=== PATIENT | male | born 1980 | race Two or more races ===

== ENCOUNTER 2020-11-30 14:24 | Outpatient (REF) | payer OTHER, SELFPAY ==
[2020-11-30 14:53] LABS: COVID-19 Test Negative (Negative); IDNOW Serial# 55D5AD1C
== END 2020-11-30 14:25 | disposition home or self-care (01) ==
LOC: HO.LAB 14:24
PROVIDERS: PCP Internal Medicine; Visit Provider Internal Medicine
DX: Z20.822 Contact with and (suspected) exposure to COVID-19 (principal)
CPT/HCPCS: 36415; 87635; C9803

== ENCOUNTER 2021-07-10 15:18 | Emergency (ER) | payer MEDICAID, SELFPAY ==
[2021-07-10 17:35] VITALS: BP 128/75; PULSE 91; RESP 18; TEMP 37.1; O2SAT 97; BMI 41.3
--- NOTE | 2021-07-10 19:33 | ED_ITS ---
HPI - Skin/Abscess/Foreign Bdy General Chief complaint: Skin/Abscess/Foreign Body Stated complaint: Abscess Time Seen by Provider: 07/10/21 19:33 Source: patient Mode of arrival: ambulatory Limitations: no limitations History of Present Illness HPI narrative: Patient noticed small abscess at the suprapubic area for last 2 3 days had similar abscesses in the past started draining small amount of pus with swelling no fever or chills Related Data Previous Rx's Medication Instructions Recorded cephalexin 500 mg capsule 500 mg PO QID 10 Days #40 cap 07/10/21 doxycycline hyclate 100 mg tablet 100 mg PO BID #20 tab 07/10/21 Allergies Allergy/AdvReac Type Severity Reaction Status Date / Time N.K.D.A. Allergy Unknown none Uncoded 07/10/21 17:35 Review of Systems Review of Systems: Yes all other systems are reviewed and are negative [facility] Past Medical History Medical History Left thyroid nodule Obesity (BMI 30-39.9) Surgical History History of lobectomy of thyroid History of thyroid nodule History of tonsillectomy Family History Family History Father No problems noted. Mother No problems noted. Physical Exam Vital Signs: Vital Signs: Last Vital Signs Temp 98.8 F 07/10/21 17:35 Pulse 91 07/10/21 17:35 Resp 18 07/10/21 17:35 BP 128/75 07/10/21 17:35 Pulse Ox 97 07/10/21 17:35 BMI result Body Mass Index 41.3 Const: General: comfortable and no acute distress : Male genitals images: 1. Small abscess in suprapubic area with slight surrounding induration no cellulitis testicle penis and epididymis normal Procedures Abscess I/D Site: other (Suprapubic) Local Anesthetic: lidocaine 2% Amount of anesthesia used (mL): 5 Technique: incised with blade Amount of fluid expressed (mL): 1 Irrigation: No Packing used?: none Discharge Plan Discharge Clinical Impression: Abscess of skin or subcutaneous tissue Qualifiers: Site of cutaneous abscess: trunk Site of cutaneous abscess of trunk: groin Qualified Code(s): L02.214 - Cutaneous abscess of groin Patient Disposition: Home, Self-Care Instructions: Abscess Incision and Drainage (DC) Additional Instructions: Local care advised Warm compresses take antibiotic as prescribed Prescriptions: New cephalexin 500 mg capsule 500 mg PO QID 10 Days Qty: 40 RF: 0 doxycycline hyclate 100 mg tablet 100 mg PO BID Qty: 20 RF: 0
[2021-07-10] MEDS: cephALEXin 500 MG CAPSULE PO (20:07)
[2021-07-10] MEDS: Lidocaine HCl 2 % MPF 5 ML VIAL INFILTRATI (20:07)
== END 2021-07-10 20:15 | disposition home or self-care (01) ==
PROVIDERS: Emergency Provider Internal Medicine; PCP Internal Medicine
DX: L02.214 Cutaneous abscess of groin (principal)
CPT/HCPCS: 10060; 99284

== ENCOUNTER 2022-01-13 08:18 | Outpatient (REF) | payer OTHER, SELFPAY ==
[2022-01-13 08:42] LABS: Hematocrit 46.7 % (42.0-52.0); Hemoglobin 14.4 g/dl (14.0-18.0); Mean Corpuscular HGB Conc 30.8 g/dl (31.0-36.0); Mean Corpuscular Hemoglobin 27.1 pg (27.0-33.0); Mean Corpuscular Volume 87.8 fL (80.0-98.0); Mean Platelet Volume 9.6 fL (9.4-12.4); Platelet Count 248 X10*3/uL (160-400); Red Blood Count 5.32 X10*6/uL (4.60-5.80); Red Cell Distribution Width 14.1 % (11.0-16.0); White Blood Count 6.7 X10*3/uL (4.8-10.8)
[2022-01-13 08:55] LABS: Estimated Average Glucose 123 mg/dL; Hemoglobin A1c % 5.9 %
[2022-01-13 09:24] LABS: Alanine Aminotransferase 17 U/L (0-40); Alkaline Phosphatase 263 U/L (39-117); Anion Gap 13 (12-20); Aspartate Amino Transferase 21 U/L (5-37); Bilirubin Total 0.4 mg/dL (0.0-1.0); Blood Urea Nitrogen 18 mg/dL (9-16); Carbon Dioxide 28 mmol/L (22-29); Chloride 103 mmol/L (96-108); Cholesterol 138 mg/dL; Estimated Glomerular Filt Rate > 60; Glucose Fasting 122 mg/dL (60-99); HDL Cholesterol 39 mg/dL; LDL Cholesterol Calculated 89 mg/dl; Sodium 139 mmol/L (135-145); Triglycerides 54 mg/dL
[2022-01-13 09:32] LABS: Free T4 (Free Thyroxine) 1.22 ng/dL (0.71-1.85); TSH reflex Free T4 1.92 uIU/mL (0.32-4.0)
== END 2022-01-13 08:19 | disposition home or self-care (01) ==
LOC: HO.LAB 08:18
PROVIDERS: PCP Internal Medicine; Visit Provider Physician Assistant
DX: E66.01 Morbid (severe) obesity due to excess calories (principal); Z68.41 Body mass index [BMI] 40.0-44.9, adult; Z90.09 Acquired absence of other part of head and neck
CPT/HCPCS: 36415; 80053; 80061; 83036; 84439; 84443; 85027

== ENCOUNTER 2022-03-09 08:46 | Outpatient (REF) | payer OTHER, SELFPAY ==
--- NOTE | ~2022-03-09 | US_ITS ---
EXAMINATION: US ABDOMEN COMPLETE CLINICAL INFORMATION: Elevated alkaline phosphatase level. Rule out gallstone. COMPARISON: Ultrasound kidneys and bladder 09/28/2019. Renal ultrasound 06/18/2019. CT abdomen and pelvis 12/15/2018. TECHNIQUE: Real-time imaging of the abdominal viscera. Technically difficult study secondary to body habitus. FINDINGS: PANCREAS: Normal. ABDOMINAL AORTA: The proximal and mid abdominal aorta are not well visualized. The distal abdominal aorta is normal in caliber. INFERIOR VENA CAVA: Visualized portions are normal. LIVER: Normal. The liver is normal in size. The liver contour is normal. Parenchymal echogenicity is normal. No focal hepatic lesion. There is no intrahepatic biliary duct dilatation seen. GALLBLADDER: Normal. The gallbladder is physiologically distended without evidence of stones, sludge, polyps, wall thickening or pericholecystic fluid. COMMON BILE DUCT: Normal in caliber measuring 0.5 cm in diameter. RIGHT KIDNEY: Normal. No hydronephrosis. No renal calculi or focal parenchymal lesions. The kidney measures 12.3 cm in maximum dimension. LEFT KIDNEY: Normal. No hydronephrosis. No renal calculi or focal parenchymal lesions. The kidney measures 12.2 cm in maximum dimension. SPLEEN: Normal. The spleen measures 11.3 cm in maximum dimension. FREE FLUID: None. US/US abdomen complete IMPRESSION: Limited visualization of the proximal and mid abdominal aorta. Otherwise unremarkable exam.
== END 2022-03-09 08:47 | disposition home or self-care (01) ==
LOC: HO.US 08:46
PROVIDERS: Visit Provider Physician Assistant
DX: R74.8 Abnormal levels of other serum enzymes (principal)
CPT/HCPCS: 76700

== ENCOUNTER 2022-06-08 09:31 | Outpatient (REF) | payer OTHER, SELFPAY ==
--- NOTE | ~2022-06-08 | XR_ITS ---
EXAMINATION: XR CERVICAL SPINE CLINICAL INFORMATION: Pain COMPARISON: None TECHNIQUE: 3 views of the cervical spine were obtained. FINDINGS: Bone alignment is normal. No fracture or dislocation. Mild degenerative spondylosis at C6-C7. Normal disc spaces. Normal prevertebral soft tissues. Surgical clips in the left anterior lower neck. XR/XR cervical spine 3V IMPRESSION: Mild degenerative spondylosis at C6-C7.
--- NOTE | ~2022-06-08 | XR_ITS ---
EXAMINATION: XR SHOULDER, LEFT CLINICAL INFORMATION: Pain COMPARISON: None TECHNIQUE: AP external rotation, Grashey, scapular Y, and axillary views of the left shoulder. FINDINGS: The bones and soft tissues are normal. No fracture. Glenohumeral and acromioclavicular alignment is anatomic with normal joint space. No abnormal soft tissue calcifications. XR/XR shoulder LT min 2V IMPRESSION: Normal left shoulder.
[2022-06-08 10:29] LABS: Appearance Urine Clear; Color Urine Yellow; Glucose Urine UA Negative (Negative); Leukocyte Esterase Urine Negative (Negative); Nitrite Urine Negative (Negative); Specific Gravity - Urine >= 1.030 (1.005-1.025); Urine Blood Negative (Negative); Urine Ketones Trace mg/dL (Negative); Urine Protein Negative (Neg-Trace)
[2022-06-08 11:16] LABS: Erythrocyte Sedimentation Rate 7 MM/HR (0-15)
[2022-06-08 11:26] LABS: Prostate Specific Antigen 2.49 ng/mL (<0.05-4.0)
[2022-06-08 12:06] LABS: Vitamin B12 < 146 pg/mL (200-900)
== END 2022-06-08 09:32 | disposition home or self-care (01) ==
LOC: HO.XRAY 09:31
PROVIDERS: PCP Internal Medicine; Visit Provider Internal Medicine
DX: Z12.5 Encounter for screening for malignant neoplasm of prostate (principal); R20.2 Paresthesia of skin; R35.0 Frequency of micturition; E83.42 Hypomagnesemia
CPT/HCPCS: 36415; 72040; 73030; 81003; 82607; 82746; 83735; 84153; 85652; 86140

== ENCOUNTER → 2022-09-23 14:59 | Outpatient (BNVA) | payer OTHER, SELFPAY | PROVIDERS: PCP Internal Medicine; Visit Provider Urology | DX: S30.852A Superficial foreign body of penis, initial encounter (principal) | CPT/HCPCS: 51798; 99202 ==

== ENCOUNTER 2022-10-14 10:56 | Outpatient (REF) | payer OTHER, SELFPAY ==
[2022-10-14 12:44] LABS: Estimated Average Glucose 137 mg/dL; Hemoglobin A1c % 6.4 %
[2022-10-14 13:17] LABS: Folate 9.9 ng/mL (> or = 4.0); TSH reflex Free T4 2.25 uIU/mL (0.32-4.0); Vitamin B12 < 148 pg/mL (200-900); Vitamin D 25-OH Total 9.1 ng/mL (>30)
== END 2022-10-14 10:57 | disposition home or self-care (01) ==
LOC: HO.LAB 10:56
PROVIDERS: PCP Internal Medicine; Visit Provider Nurse Practitioner Family
DX: R35.0 Frequency of micturition (principal); R73.01 Impaired fasting glucose; Z90.09 Acquired absence of other part of head and neck
CPT/HCPCS: 36415; 82306; 82607; 82746; 83036; 84443; 87086

== ENCOUNTER 2022-11-24 08:23 | Outpatient (REF) | payer OTHER, SELFPAY ==
[2022-11-24 08:28] VITALS: BMI 41.9
[2022-11-24 08:29] VITALS: BP 141/84; PULSE 88; RESP 16; TEMP 36.8; O2SAT 100
[2022-11-24 08:47] VITALS: BP 132/78; PULSE 87; RESP 16; O2SAT 98
--- NOTE | 2022-11-24 09:05 | W.PM.OPN ---
Operative Note Operative Note Date of Service: 11/24/22 Narrative: PreOperative Diagnosis: Foreign body dorsal area penile shaft Post Operative Diagnosis: Foreign body dorsal penile shaft Procedure: Removal of foreign body from dorsal penile shaft Surgeon: Dr Alfred Maki Anesthesia: Local Indications for procedure: Dorsal penile shaft foreign body had been placed during prior incarceration. Patient requesting removal. Procedure: After informed consent was verified the patient was brought to the operating room and placed in a supine position. Anesthesia was administered per protocol. The patient was prepped and draped in a sterile fashion. Safety pause time-out was performed. Antibiotics being given. The foreign body was manipulated between the left hand. A small incision was made with a blade onto the foreign body. Foreign body was dissected carefully from its surrounding attachments and removed. It was approximately 1 centimeter sq. Once removed to deep sutures were placed. Three sutures were then used to close the incision with interrupted 4-0 chromic. Procedure well tolerated Pathology: Foreign body Drains:
== END 2022-11-24 08:24 | disposition home or self-care (01) ==
LOC: HO.MS 08:23
PROVIDERS: PCP Internal Medicine; Visit Provider Urology
PROC: (CPT 10120; principal; 2022-11-24 08:00)
DX: S30.852A Superficial foreign body of penis, initial encounter (principal); X58.XXXA Exposure to other specified factors, initial encounter; Y93.9 Activity, unspecified; Y92.9 Unspecified place or not applicable
CPT/HCPCS: 10120

== ENCOUNTER 2022-12-19 08:51 | Outpatient (REF) | payer OTHER, SELFPAY ==
--- NOTE | ~2022-12-19 | XR_ITS ---
EXAMINATION: XR FOOT, RIGHT XR FOOT, LEFT CLINICAL INDICATION: Pain. TECHNIQUE: 3 views each foot. FINDINGS: Right foot: The joint spaces are maintained. No visible fracture or dislocation. No periosteal thickening. The small retrocalcaneal enthesophyte is seen. The ankle mortise and subtalar joints are normal. Left foot: There is no visible fracture, dislocation or bony erosive changes. The joint space is maintained normal. The soft tissues are normal. The ankle mortise and subtalar joints are normal. A small retrocalcaneal and calcaneal heel enthesophyte. XR/XR foot RT 2V IMPRESSION: Small retrocalcaneal enthesophytes bilaterally with a small calcaneal heel spur left foot enthesophyte. No acute fracture, dislocation or bony erosive changes.
--- NOTE | ~2022-12-19 | XR_ITS ---
EXAMINATION: XR FOOT, RIGHT XR FOOT, LEFT CLINICAL INDICATION: Pain. TECHNIQUE: 3 views each foot. FINDINGS: Right foot: The joint spaces are maintained. No visible fracture or dislocation. No periosteal thickening. The small retrocalcaneal enthesophyte is seen. The ankle mortise and subtalar joints are normal. Left foot: There is no visible fracture, dislocation or bony erosive changes. The joint space is maintained normal. The soft tissues are normal. The ankle mortise and subtalar joints are normal. A small retrocalcaneal and calcaneal heel enthesophyte. XR/XR foot LT 2V IMPRESSION: Small retrocalcaneal enthesophytes bilaterally with a small calcaneal heel spur left foot enthesophyte. No acute fracture, dislocation or bony erosive changes.
== END 2022-12-19 08:52 | disposition home or self-care (01) ==
LOC: HO.XRAY 08:51
PROVIDERS: PCP Internal Medicine; Visit Provider Nurse Practitioner Family
DX: M79.671 Pain in right foot (principal); M79.672 Pain in left foot
CPT/HCPCS: 73620

== ENCOUNTER 2023-04-28 13:04 | Outpatient (AMB) | payer OTHER, SELFPAY ==
--- NOTE | 2023-04-28 13:04 | MHC.PC.OV ---
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 Accompanied by: Self / Same As Patient Allergies No Known Allergies Allergy (Verified 04/28/23 13:40) Medication List - Last Reconciled 04/28/23 by Anson Bruce MD cholecalciferol (vitamin D3) 50 mcg PO DAILY cyanocobalamin (vitamin B-12) 1,000 mcg PO DAILY nabumetone 500 mg PO BID terazosin 10 mg PO BEDTIME 30 days Tobacco use date assessed: 04/28/23 Dental Screening Dental Screen Date: 04/28/23 Did you have a dental visit in the last 12 months?: Yes Did you have a dental problem in the last 6 months where you did not have access to dental care?: No Was dental information given to patient?: Patient has dentist HPI PE HPI Details Patient comes in today for his annual physical examination States that he feels okay He denies any headaches or dizziness Denies any chest pains, no SOB No nausea/vomiting, no abdominal pain No change in bowel habits noted Denies any acute urinary symptoms PFSH Medical History (Updated 04/30/23 @ 18:34 by Anson Bruce MD) Vitamin D deficiency Vitamin B12 deficiency Morbid obesity with BMI of 40.0-44.9, adult Obesity (BMI 30-39.9) Left thyroid nodule Surgical History History of thyroid nodule History of lobectomy of thyroid History of tonsillectomy Family History Father No problems noted. Mother No problems noted. Social History Housing: House Alcohol intake: current Alcohol intake frequency: holidays/special occasions only Patient Tobacco Use Status: Former Tobacco user Tobacco use type: Cigarette Years Smoked: 30 e-Cigarette/Vaping Use: Never Used Substance Use Type: Marijuana service: No Current occupational status: unemployed Cognitive needs: No Hearing needs: No Vision needs: No Questionnaire PHQ-9 Over the last 2 weeks, how often have you been bothered by any of the following problems? 1. Little interest or pleasure in doing things: not at all 2. Feeling down, depressed, or hopeless: not at all 3. Trouble falling or staying asleep, or sleeping too much: not at all 4. Feeling tired or having little energy: not at all 5. Poor appetite or overeating: not at all 6. Feeling bad about yourself - or that you are a failure or have let yourself or your family down: not at all 7. Trouble concentrating on things, such as reading the newspaper or watching television: not at all 8. Moving or speaking so slowly that other people could have noticed. Or the opposite - being so fidgety or restless that you have been moving around a lot more than usual: not at all 9. Thoughts that you would be better off or of hurting yourself in some way: not at all Total score: 0 Depression Screening Interpretation: Negative [id number] - PHQ-9 Billing: Yes Source: Developed by Drs. Joey Arriola, Aisha Eller, Jim Tolentino and colleagues, with an educational liliana from [employer] Thrive Questionnaire Date Thrive assessed: 04/28/23 I am a: Patient What is your living situation today?: I have a steady place to live Within the past 12 months, did the food you bought not last and you didn't have the money to get more?: Never true Within the past 12 months, did you worry whether your food would run out before you got money to buy more?: Never true Do you have trouble paying for medicines?: No Do you have trouble getting transportation to medical appointments?: No Do you have trouble paying your heating and electricity bill?: No Do you have trouble taking care of your child, family member or friend?: No Do you have trouble with day-to-day activities such as bathing, preparing meals, shopping, managing finances, etc.?: No Are you currently unemployed and looking for a job?: No Are you interested in more education?: No Please select the resources that you would like help with: None Currently or been in a relationship where the following occur: no concerns reported AUDIT C Alcohol Use Questionnaire (AUDIT-C) 1. How often do you have a drink containing alcohol?: Monthly or less 2. How many drinks containing alcohol do you have on a typical day when you are drinking?: 1 or 2 3. How often do you have six or more drinks on one occasion?: Less than monthly Total Score: 2 Score Reviewed/Action Taken: Yes WESLEY-7 AMB Questionnaire WESLEY-7 Date WESLEY - 7 assessed: 04/28/23 Feeling nervous, anxious, or on edge: 0 = Not at all Not being able to stop or control worryin = Not at all Worrying too much about different things: 0 = Not at all Trouble relaxin = Not at all Being so restless that it is hard to sit still: 0 = Not at all Becoming easily annoyed or irritable: 0 = Not at all Feeling afraid as if something awful might happen: 0 = Not at all Total WESLEY-7 score (0-4 normal; 5-9 mild; 10-14 moderate; 15-21 severe): 0 Source: Developed by Drs. Joey Arriola, Aisha Eller, Jim Tolentino and colleagues, with an educational liliana from [employer] Review of Systems Const Denies chills, Denies fatigue, Denies fever(s), Denies headache(s), Denies malaise and Denies weakness Eyes Denies blurry vision, Denies change in vision, Denies irritation and Denies itchy eyes ENT Denies dysphagia, Denies dizziness, Denies otalgia, Denies headache(s), Denies nasal congestion, Denies neck pain, Denies odynophagia and Denies sore throat Card Denies chest pain, Denies rapid heart rate, Denies irregular heart rhythm, Denies palpitations and Denies dyspnea Resp Denies chest congestion, Denies cough, Denies dyspnea and Denies wheezing GI Denies abdominal pain, Denies bloating, Denies constipation, Denies dysphagia, Denies heartburn, Denies diarrhea, Denies nausea, Denies odynophagia and Denies vomiting Denies hematuria, Denies difficulty urinating, Denies dysuria, Denies urinary frequency and Denies urinary urgency Musc Denies back pain, Denies arthralgias, Denies joint swelling, Denies muscle weakness and Denies neck pain Skin/Breast Denies change in pigmentation, Denies lesions, Denies rash and Denies unusual bruising Neuro Denies dizziness, Denies headache(s), Denies paresthesias and Denies weakness Endo Denies fatigue and Denies palpitations Aller/Immun Denies itchy eyes and Denies wheezing Physical exam (Primary Care) Vital Signs: Last Vital Signs Pulse 87 04/28/23 13:05 BP 130/70 04/28/23 13:05 Pulse Ox 95 04/28/23 13:05 Oxygen Delivery Method Room Air 04/28/23 13:05 BMI result Body Mass Index 43.2 Tobacco/Smoking Status: Tobacco use Status Tobacco use date assessed 04/28/23 04/28/23 13:13 Patient Tobacco Use Status Former Tobacco user 04/28/23 13:13 Tobacco use type Cigarette 04/28/23 13:13 e-Cigarette/Vaping Use Never Used 04/28/23 13:13 PHQ-9: PHQ-9 Score PHQ-9: Total score 0 04/28/23 13:44 Depression Screening Interpretation: Negative Thrive Assessment: Date of Thrive Assessment Date Thrive assessed 04/28/23 04/28/23 13:13 Currently or been in a relationship where the following occur: no concerns reported Const General: no acute distress, alert and awake Orientation/consciousness: patient oriented x3 HENMT Head: Yes normocephalic and Yes atraumatic Ears: external ears normal, TM's normal bilaterally and EAC's normal General nose exam: No nasal discharge present Face and sinus: Yes normal facial exam and Yes sinuses nontender Teeth and gingiva: dentition normal Throat: Yes posterior oropharynx normal and Yes tonsils normal (no TP congestion) Eyes Eyelids: Yes eyelids normal Conjunctivae: conjunctivae normal Pupils: Equal, round and reactive pupils present EOM: EOMs intact bilaterally Neck Neck: Yes no lymphadenopathy and Yes supple Thyroid: Thyroid normal Resp Auscultation: clear to auscultation bilaterally, no rales and no wheezes Cardio Rate: regular rate Rhythm: regular rhythm Heart sounds: no murmurs GI Palpation (GI): Soft to palpation, nontender and No hepatosplenomegaly present Auscultation: normal bowel sounds General: Yes no CVA tenderness Back/Spine/Pelvis Back: no CVA tenderness Thoracic/Lumbar Spine: thoracic and lumbar spine normal to inspection Skin Lesions: no lesions Rashes: no rashes Neuro General: patient oriented x3, moves all extremities, no focal motor deficits and CN's II-XI intact bilaterally Cranial nerves: Yes Equal, round and reactive pupils present Cognition (Neuro): normal cognition Gait exam (Neuro): Normal gait present Extrem General: Yes no clubbing, cyanosis or edema Assessment and Plan Assessment & Plan (1) Annual physical exam: Code(s): Z00.00 - Encounter for general adult medical examination without abnormal findings Plan: Check labs ELIZABETH (2) Impaired fasting glucose: Code(s): R73.01 - Impaired fasting glucose Plan: Reinforced low calorie/low carb diet; exercise as tolerated His FBS has been elevated in the past and his HgbA1c was at 6.4% when checked back in October 2022 - advised that this classifies him at least as a borderline diabetic and if his HgbA1c goes up any further, he would then be in diabetic range Will recheck his FBS and HgbA1c ELIZABETH for follow up (3) Vitamin B12 deficiency: Code(s): E53.8 - Deficiency of other specified B group vitamins Plan: Patient has had a very low Vitamin B12 level when checked a few months ago in October 2022 - advised that this may be a large reason for his previous symptoms of paresthesia Will send him for some additional labs for further work ups as we need to determine if his B12 deficiency is just dietary or may be due to intrinsic factor deficiency (4) Vitamin D deficiency: Code(s): E55.9 - Vitamin D deficiency, unspecified Plan: Is advised to start taking OTC Vitamin D3 2000 units QD Will recheck his Vitamin D level for follow up (5) Morbid obesity with BMI of 40.0-44.9, adult: Code(s): E66.01 - Morbid (severe) obesity due to excess calories; Z68.41 - Body mass index [BMI] 40.0-44.9, adult Plan: Reinforced diet/exercise as tolerated/lose weight (6) Colon cancer screening: Code(s): Z12.11 - Encounter for screening for malignant neoplasm of colon Plan: Will refer him for screening colonoscopy Plan Follow up in 4 months Orders: Orders TSH reflex Free T4 04/28/23 E78.00 - Pure hypercholesterolemia, unspecified, R73.01 - Impaired fasting glucose, Z00.00 - Encounter for general adult medical examination without abnormal findings UA CC w/rflx Micro + Cult 04/28/23 R30.0 - Dysuria, R73.01 - Impaired fasting glucose, Z00.00 - Encounter for general adult medical examination without abnormal findings Hemoglobin A1c 04/28/23 R73.01 - Impaired fasting glucose Methylmalonic Acid Today E53.8 - Deficiency of other specified B group vitamins Reticulocyte Count Today D51.0 - Vitamin B12 deficiency anemia due to intrinsic factor deficiency, E53.8 - Deficiency of other specified B group vitamins Prostate Specific Antigen Scr Today Z00.00 - Encounter for general adult medical examination without abnormal findings Complete Blood Count Auto Diff 04/28/23 R73.01 - Impaired fasting glucose, Z00.00 - Encounter for general adult medical examination without abnormal findings Comprehensive [place]. Panel Fast 04/28/23 R73.01 - Impaired fasting glucose, Z00.00 - Encounter for general adult medical examination without abnormal findings Lipid Panel 04/28/23 E78.00 - Pure hypercholesterolemia, unspecified, R73.01 - Impaired fasting glucose, Z00.00 - Encounter for general adult medical examination without abnormal findings Vitamin B12 and Folate 04/28/23 E53.8 - Deficiency of other specified B group vitamins, R73.01 - Impaired fasting glucose, Z00.00 - Encounter for general adult medical examination without abnormal findings Vitamin D 25-OH Total 04/28/23 E55.9 - Vitamin D deficiency, unspecified, R73.01 - Impaired fasting glucose, Z00.00 - Encounter for general adult medical examination without abnormal findings IRON PROFILE Today D50.9 - Iron deficiency anemia, unspecified, D51.0 - Vitamin B12 deficiency anemia due to intrinsic factor deficiency, E53.8 - Deficiency of other specified B group vitamins Referrals Gastroenterology Referral R73.01 - Impaired fasting glucose, Z00.00 - Encounter for general adult medical examination without abnormal findings, Z12.11 - Encounter for screening for malignant neoplasm of colon Coding Level of Care Code Est Pt Prev Care 40-64y(30410) Diagnoses Annual physical exam Z00.00 Impaired fasting glucose R73.01 Vitamin B12 deficiency E53.8 Vitamin D deficiency E55.9 Morbid obesity with BMI of 40.0-44.9, adult E66.01; Z68.41 Colon cancer screening Z12.11
[2023-04-28 13:05] VITALS: BP 130/70; PULSE 87; O2SAT 95; BMI 43.2
== END 2023-04-28 13:50 | disposition home or self-care (01) ==
PROVIDERS: PCP Internal Medicine; Visit Provider Internal Medicine
DX: Z00.00 Encounter for general adult medical examination without abnormal findings (principal); E55.9 Vitamin D deficiency, unspecified; E66.01 Morbid (severe) obesity due to excess calories; Z68.41 Body mass index [BMI] 40.0-44.9, adult; Z90.09 Acquired absence of other part of head and neck
CPT/HCPCS: 99396

== ENCOUNTER 2023-05-10 08:43 | Outpatient (REF) | payer OTHER, SELFPAY ==
[2023-05-10 09:26] LABS: MANUAL DIFF FLAG NO
[2023-05-10 09:37] LABS: Basophils Percent Auto 0.3 % (0-2); Eosinophils Absolute Auto 0.1 X10*3/uL (0.0-0.4); Eosinophils Percent Auto 1.2 % (0-4); Hematocrit 46.5 % (42.0-52.0); Hemoglobin 14.8 g/dl (14.0-18.0); Imm Gran Abs Auto 0.02 X10*3/uL (0.00-0.03); Imm Gran Pct Auto 0.3 % (0.0-0.4); Immature Retic Fraction 9.9 % (2.3-13.4); Lymphocytes Absolute Auto 1.8 X10*3/uL (1.2-4.9); Mean Corpuscular HGB Conc 31.8 g/dl (31.0-36.0); Mean Corpuscular Hemoglobin 27.1 pg (27.0-33.0); Mean Platelet Volume 9.6 fL (9.4-12.4); Monocytes Absolute Auto 0.5 X10*3/uL (0.1-1.2); Monocytes Percent Auto 7.3 % (2-11); Neutrophils Absolute Auto 4.5 x10*3/uL (2.0-8.3); Neutrophils Percent Auto 64.9 % (45-73); Platelet Count 283 X10*3/uL (160-400); Red Blood Count 5.47 X10*6/uL (4.60-5.80); Retic HGB Equivalent 33.5 pg (30.0-35.0); Reticulocyte Percent 1.3 % (0.5-1.8); Reticulocytes Absolute 0.072 X10*6/uL (0.026-0.095); White Blood Count 6.9 X10*3/uL (4.8-10.8)
[2023-05-10 10:26] LABS: TSH reflex Free T4 1.77 uIU/mL (0.32-4.0); Vitamin D 25-OH Total 23.5 ng/mL (>30)
[2023-05-10 10:32] LABS: Folate 16.5 ng/mL (> or = 4.0); Prostate Specific Antigen Scr 4.15 ng/mL (<0.05-4.0); Vitamin B12 215 pg/mL (200-900)
[2023-05-10 10:59] LABS: Estimated Average Glucose 134 mg/dL; Hemoglobin A1C 150.9009 umol/L; Hemoglobin A1c % 6.3 % (<6.0)
[2023-05-10 11:40] LABS: Alanine Aminotransferase 21 U/L (0-40); Albumin Level 4.2 g/dL (3.5-5.0); Alkaline Phosphatase 85 U/L (39-117); Anion Gap 12 (12-20); Aspartate Amino Transferase 24 U/L (5-37); Bilirubin Total 0.7 mg/dL (0.0-1.0); Blood Urea Nitrogen 15 mg/dL (9-16); Calcium 9.3 mg/dL (8.4-10.2); Carbon Dioxide 29 mmol/L (22-29); Chloride 103 mmol/L (96-108); Cholesterol 200 mg/dL (<200); Estimated Glomerular Filt Rate > 60; Glucose Fasting 129 mg/dL (60-99); HDL Cholesterol 43 mg/dL (>40); Iron 97 mcg/dL (45-160); LDL Cholesterol Calculated 136 mg/dL (<100); Percent Iron Saturation 29 % (15-50); Potassium 4.6 mmol/L (3.3-5.1); Sodium 139 mmol/L (135-145); Total Iron Binding Capacity 339 mcg/dL (228-428); Total Protein 7.5 g/dL (6.5-8.0); Triglycerides 107 mg/dL (<150); Unsaturated Iron Binding 242 ug/dL
[2023-05-10 11:41] LABS: Appearance Urine Clear; Color Urine Yellow; Glucose Urine UA Negative (Negative); Leukocyte Esterase Urine Trace (Negative); Nitrite Urine Negative (Negative); Specific Gravity - Urine 1.025 (1.005-1.025); UMIC TRIGGER UACC YES; Urine Blood Negative (Negative); Urine Ketones Negative (Negative); Urine Protein Negative (Neg-Trace)
[2023-05-10 11:45] LABS: Bacteria Urine None Seen (None Seen); RBC Urine 0-2 /HPF (0-2); Squamous Epithelial Cell Urine 0-2 /HPF (0-2); WBC Urine 0-5 /HPF (0-5)
[2023-05-14 06:39] LABS: Methylmalonic Acid 550 nmol/L (87-318)
== END 2023-05-10 08:44 | disposition home or self-care (01) ==
LOC: HO.LAB 08:43
PROVIDERS: PCP Internal Medicine; Visit Provider Internal Medicine
DX: Z00.00 Encounter for general adult medical examination without abnormal findings (principal); R73.01 Impaired fasting glucose; D50.9 Iron deficiency anemia, unspecified; D51.0 Vitamin B12 deficiency anemia due to intrinsic factor deficiency; E78.00 Pure hypercholesterolemia, unspecified; E55.9 Vitamin D deficiency, unspecified
CPT/HCPCS: 36415; 80053; 80061; 81001; 82306; 82607; 82746; 83036; 83540; 83921; 84153; 84443; 85025; 85045

== ENCOUNTER 2023-07-06 11:44 | Outpatient (AMB) | payer OTHER, SELFPAY ==
--- NOTE | 2023-07-06 12:04 | MHC.OFFVIS ---
Intake Vital Signs 07/06/23 12:05 Height 5 ft 9 in Weight 282 lb BMI 41.6 BP 139/74 Blood Pressure Location Lt brachial Position Sitting Pulse 79 Intake Visit Reasons: Colonoscopy Screening Intake Note: Patient new consult for 1st pre colonoscopy screening. Patient denies any GI issues. 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 No GI complaint Normal bowels Good appetite No cardiac or respiratory No N/V/D/ abdominal pain, fever or chills PFSH Medical History Vitamin D deficiency Vitamin B12 deficiency Morbid obesity with BMI of 40.0-44.9, adult Obesity (BMI 30-39.9) Left thyroid nodule Surgical History History of thyroid nodule History of lobectomy of thyroid History of tonsillectomy Family History Father No problems noted. Mother No problems noted. Social History Housing: House Alcohol intake: current Alcohol intake frequency: holidays/special occasions only Patient Tobacco Use Status: Former Tobacco user Tobacco use type: Cigarette Years Smoked: 30 e-Cigarette/Vaping Use: Never Used Substance Use Type: Marijuana service: No Current occupational status: unemployed Cognitive needs: No Hearing needs: No Vision needs: No Review of Systems Const All systems reviewed & are unremarkable except as noted in HPI and below Card Denies chest pain and Denies dyspnea Resp Denies dyspnea Physical Exam Vital Signs: Last Vital Signs Pulse 79 07/06/23 12:05 BP 139/74 07/06/23 12:05 BMI result Body Mass Index 41.6 Const General: cooperative, healthy appearing, comfortable, no acute distress and well developed Eyes Sclerae: sclerae normal Resp Effort & Inspection: normal respiratory effort and able to speak in complete sentences Auscultation: clear to auscultation bilaterally, no rales, no rhonchi and no wheezes Cardio Rate: regular rate Rhythm: regular rhythm Heart sounds: S1 normal heart sound present and S2 normal heart sound present GI Palpation (GI): Soft to palpation and nontender Auscultation: normal bowel sounds Extrem General: Yes full ROM Psych Appearance: grossly normal and well kempt Mental Status: mental status grossly normal Speech and movement: Normal speech and movement present and Clear speech present Affect: normal affect Attitude: cooperative Thought process: Normal thought process present Thought content: Normal thought content present Insight: Good insight present (Psych) Judgement: Good judgement present (Psych) Assessment & Plan Assessment & Plan (1) Colon cancer screening: Comment: Discussed procedure, rare risks, need for escort Code(s): Z12.11 - Encounter for screening for malignant neoplasm of colon Plan: Index screening colonoscopy Plan Index screening colonoscopy MiraLax Gatorade prep Orders: Orders Colonoscopy - GI Use Only Today Z12.11 - Encounter for screening for malignant neoplasm of colon Medications: New bisacodyl (Dulcolax (bisacodyl)) Day before procedure, prep day Take 4 tablets by mouth upon awakening followed by large glass of water 20 mg (4 x 5 mg) PO ONCE 4 tabs 0RF colonoscopy prep 1 day Z12.11 - Encounter for screening for malignant neoplasm of colon polyethylene glycol 3350 (Miralax) Take as directed by mouth the day before your procedure. 238 grams PO ONCE PRN 238 grams 0RF laxative effect 1 day Patient Instructions: Index screening colonoscopy MiraLax Gatorade prep, reviewed, literature Opportunity for questions and answered to his satisfaction Encouraged to call questions or concerns Coding Level of Care Code New Pt Level 3 (68961) Diagnoses Colon cancer screening Z12.11
[2023-07-06 12:05] VITALS: BP 139/74; PULSE 79; BMI 41.6
== END 2023-07-06 13:05 | disposition home or self-care (01) ==
PROVIDERS: PCP Internal Medicine; Visit Provider Physician Assistant
DX: Z12.11 Encounter for screening for malignant neoplasm of colon (principal); Z01.818 Encounter for other preprocedural examination
CPT/HCPCS: 99203

== ENCOUNTER → 2023-07-06 11:44 | Outpatient (BNVA) | payer OTHER, SELFPAY | PROVIDERS: PCP Internal Medicine; Visit Provider Physician Assistant | DX: Z12.11 Encounter for screening for malignant neoplasm of colon (principal) | CPT/HCPCS: 99202 ==

== ENCOUNTER 2023-08-30 13:19 | Outpatient (AMB) | payer OTHER, SELFPAY ==
[2023-08-30 13:23] VITALS: BP 110/80; PULSE 73; O2SAT 97; BMI 43.7
--- NOTE | 2023-08-30 13:23 | MHC.PC.OV ---
Vital Signs 08/30/23 13:23 Height 5 ft 9 in Weight 296 lb 4 oz BMI 43.7 BP 110/80 Blood Pressure Location Lt brachial Position Sitting Pulse 73 Pulse Source Pulse Oximeter Pulse Oximetry (%) 97 Oxygen Delivery Method Room Air Intake Visit Reasons: [facility] [employer] Librarian Required: No Accompanied by: Self / Same As Patient Allergies No Known Allergies Allergy (Verified 08/30/23 14:23) Medication List - Last Reconciled 08/30/23 by Anson Bruce MD bisacodyl (Dulcolax (bisacodyl)) 20 mg (4 x 5 mg) PO ONCE 1 day cholecalciferol (vitamin D3) 50 mcg PO DAILY cyanocobalamin (vitamin B-12) 1,000 mcg PO DAILY nabumetone 500 mg PO BID polyethylene glycol 3350 (Miralax) 238 grams PO ONCE PRN 1 day terazosin 10 mg PO BEDTIME 30 days Tobacco use date assessed: 08/30/23 Dental Screening Dental Screen Date: 08/30/23 Did you have a dental visit in the last 12 months?: Yes Did you have a dental problem in the last 6 months where you did not have access to dental care?: No Was dental information given to patient?: Patient has dentist HPI IFG HPI Details Patient comes in today for his follow-up visit States that he feels okay He denies any headaches or dizziness Denies any chest pain, no shortness of breath No nausea /vomiting, no abdominal pain No change in bowel habits noted Would like to know how he did on his labs done back in May 2023 He is scheduled for his screening colonoscopy on 11/08/2023 Patient adds that his wants him to get a sleep study done as she has noticed him stop breathing frequently when he is sleeping States that his also mentioned that he has been snoring very heavily when he is sleeping over the past year and that this is much worse than before [facility] Medical History (Updated 09/04/23 @ 11:01 by Anson Bruce MD) Elevated PSA Pure hypercholesterolemia Vitamin D deficiency Vitamin B12 deficiency Morbid obesity with BMI of 40.0-44.9, adult Obesity (BMI 30-39.9) Left thyroid nodule Surgical History History of thyroid nodule History of lobectomy of thyroid History of tonsillectomy Family History Father No problems noted. Mother No problems noted. Social History Housing: House Alcohol intake: current Alcohol intake frequency: holidays/special occasions only Patient Tobacco Use Status: Former Tobacco user Tobacco use type: Cigarette Years Smoked: 30 e-Cigarette/Vaping Use: Never Used Substance Use Type: Marijuana service: No Current occupational status: unemployed Cognitive needs: No Hearing needs: No Vision needs: No Questionnaire PHQ-9 Over the last 2 weeks, how often have you been bothered by any of the following problems? 1. Little interest or pleasure in doing things: not at all 2. Feeling down, depressed, or hopeless: not at all 3. Trouble falling or staying asleep, or sleeping too much: not at all 4. Feeling tired or having little energy: not at all 5. Poor appetite or overeating: not at all 6. Feeling bad about yourself - or that you are a failure or have let yourself or your family down: not at all 7. Trouble concentrating on things, such as reading the newspaper or watching television: not at all 8. Moving or speaking so slowly that other people could have noticed. Or the opposite - being so fidgety or restless that you have been moving around a lot more than usual: not at all 9. Thoughts that you would be better off or of hurting yourself in some way: not at all Total score: 0 Depression Screening Interpretation: Negative Depression Screening Done: Yes [id number] - PHQ-9 Billing: Yes Source: Developed by Drs. Joey Arriola, Aisha Eller, Jim Tolentino and colleagues, with an educational liliana from [employer]. Thrive Questionnaire Date Thrive assessed: 08/30/23 I am a: Patient What is your living situation today?: I have a steady place to live Within the past 12 months, did the food you bought not last and you didn't have the money to get more?: Never true Within the past 12 months, did you worry whether your food would run out before you got money to buy more?: Never true Do you have trouble paying for medicines?: No Do you have trouble getting transportation to medical appointments?: No Do you have trouble paying your heating and electricity bill?: No Do you have trouble taking care of your child, family member or friend?: No Do you have trouble with day-to-day activities such as bathing, preparing meals, shopping, managing finances, etc.?: No Are you currently unemployed and looking for a job?: No Are you interested in more education?: No Please select the resources that you would like help with: None Currently or been in a relationship where the following occur: no concerns reported THRIVE Score: 0 AUDIT C Alcohol Use Questionnaire (AUDIT-C) 1. How often do you have a drink containing alcohol?: Monthly or less 2. How many drinks containing alcohol do you have on a typical day when you are drinking?: 1 or 2 3. How often do you have six or more drinks on one occasion?: Less than monthly Total Score: 2 Score Reviewed/Action Taken: Yes WESLEY-7 AMB Questionnaire WESLEY-7 Date WESLEY - 7 assessed: 08/30/23 Feeling nervous, anxious, or on edge: 0 = Not at all Not being able to stop or control worryin = Not at all Worrying too much about different things: 0 = Not at all Trouble relaxin = Not at all Being so restless that it is hard to sit still: 0 = Not at all Becoming easily annoyed or irritable: 0 = Not at all Feeling afraid as if something awful might happen: 0 = Not at all Total WESLEY-7 score (0-4 normal; 5-9 mild; 10-14 moderate; 15-21 severe): 0 Source: Developed by Drs. Joey Arriola, Aisha Eller, Jim Tolentino and colleagues, with an educational liliana from [employer]. Review of Systems Const Denies chills, Reports fatigue, Denies fever(s), Denies headache(s), Reports snoring and Reports stops breathing during sleep ENT Denies dysphagia, Denies dizziness, Denies otalgia, Denies headache(s), Denies neck pain, Denies odynophagia and Denies sore throat Card Denies chest pain, Denies palpitations and Denies dyspnea Resp Denies cough, Denies dyspnea and Reports snoring GI Denies abdominal pain, Denies constipation, Denies dysphagia, Denies heartburn, Denies diarrhea, Denies nausea, Denies odynophagia and Denies vomiting Denies dysuria, Denies nocturia and Denies urinary frequency Musc Denies back pain and Denies neck pain Skin/Breast Denies rash Neuro Denies dizziness and Denies headache(s) Endo Reports fatigue and Denies palpitations Physical exam (Primary Care) Vital Signs: Last Vital Signs Pulse 73 08/30/23 13:23 BP 110/80 08/30/23 13:23 Pulse Ox 97 08/30/23 13:23 Oxygen Delivery Method Room Air 08/30/23 13:23 BMI result Body Mass Index 43.7 Tobacco/Smoking Status: Tobacco use Status Tobacco use date assessed 08/30/23 08/30/23 13:31 Patient Tobacco Use Status Former Tobacco user 08/30/23 13:31 Tobacco use type Cigarette 08/30/23 13:31 e-Cigarette/Vaping Use Never Used 08/30/23 13:31 PHQ-9: PHQ-9 Score PHQ-9: Total score 0 08/30/23 14:23 Depression Screening Interpretation: Negative Thrive Assessment: Date of Thrive Assessment Date Thrive assessed 08/30/23 08/30/23 13:31 Currently or been in a relationship where the following occur: no concerns reported Const General: no acute distress and alert HENMT Ears: TM's normal bilaterally and EAC's normal Throat: Yes posterior oropharynx normal and Yes tonsils normal (no TP congestion) Neck Neck: Yes no lymphadenopathy and Yes supple Resp Auscultation: clear to auscultation bilaterally, no rales and no wheezes Cardio Rate: regular rate Rhythm: regular rhythm Heart sounds: no murmurs GI Palpation (GI): Soft to palpation, nontender and No hepatosplenomegaly present Skin General skin exam: no rashes or lesions noted Extrem General: Yes no clubbing, cyanosis or edema Results Reviewed Results Reviewed: Laboratory Tests 05/10/23 05/10/23 05/10/23 09:16 09:16 09:25 WBC Hgb Hct Plt Count Sodium Potassium Creatinine Estimated GFR Fasting Glucose Hemoglobin A1c % Calcium Iron TIBC % Saturation AST ALT Triglycerides 107 Cholesterol 200 H LDL Cholesterol, Calc 136 H HDL Cholesterol PSA Screen 4.15 H Vitamin B12 215 Methylmalonic Acid 550 H 25-OH Vitamin D Total 23.5 TSH 1.77 Ur Specific Burns 1.025 Urine Protein Negative Urine Glucose (UA) Negative Urine Blood Negative Urine Nitrite Negative Ur Leukocyte Esterase Trace H 05/10/23 05/10/23 09:25 09:25 WBC 6.9 Hgb 14.8 Hct 46.5 Plt Count 283 Sodium 139 Potassium 4.6 Creatinine 0.89 Estimated GFR > 60 Fasting Glucose 129 H Hemoglobin A1c % 6.3 H Calcium 9.3 Iron 97 TIBC 339 % Saturation 29 AST 24 ALT 21 Triglycerides Cholesterol LDL Cholesterol, Calc HDL Cholesterol 43 PSA Screen Vitamin B12 Methylmalonic Acid 25-OH Vitamin D Total TSH Ur Specific Burns Urine Protein Urine Glucose (UA) Urine Blood Urine Nitrite Ur Leukocyte Esterase Assessment and Plan Assessment & Plan (1) Pure hypercholesterolemia: Code(s): E78.00 - Pure hypercholesterolemia, unspecified Plan: Results of his labs done back in May 2023 reviewed and discussed with patient Patient is advised that his cholesterol levels are high and have increased from the previous year Reinforce low-cholesterol diet Will recheck his labs and fasting lipids in 4 months for follow-up - patient is advised that if his cholesterol numbers have not improved by then, will need to consider starting him on cholesterol-lowering medications (2) Impaired fasting glucose: Code(s): R73.01 - Impaired fasting glucose Plan: HgbA1c was at 6.3% on his lab done back in May 2023; was at 6.4% previously Reinforced low calorie/low carb diet; exercise as tolerated Will recheck his FBS and HgbA1c in 4 months for follow up (3) Vitamin B12 deficiency: Code(s): E53.8 - Deficiency of other specified B group vitamins Plan: Improving - continue Vitamin B12 1000 mcg QD Workups done for his B12 deficiency all came back negative /normal (4) Vitamin D deficiency: Code(s): E55.9 - Vitamin D deficiency, unspecified Plan: Improving - continue Vitamin D3 2000 units QD (Rx refilled) Will recheck his Vitamin D level in 4 months for follow up (5) Elevated PSA: Code(s): R97.20 - Elevated prostate specific antigen [PSA] Plan: Patient is advised that his PSA level was elevated on his most recent labs in May 2023 and that he should continue to follow-up with urology for this (6) Witnessed apneic spells: Code(s): R06.81 - Apnea, not elsewhere classified Plan: Will refer patient to Sleep Medicine for further evaluation and management and to rule out sleep apnea (7) Morbid obesity with BMI of 40.0-44.9, adult: Code(s): E66.01 - Morbid (severe) obesity due to excess calories; Z68.41 - Body mass index [BMI] 40.0-44.9, adult Plan: Reinforced diet/exercise as tolerated/lose weight Plan Follow up in 4 months Orders: Orders Comprehensive [place]. Panel Fast 4 Months E78.00 - Pure hypercholesterolemia, unspecified Lipid Panel 4 Months E78.00 - Pure hypercholesterolemia, unspecified UA CC w/rflx Micro + Cult 4 Months R30.0 - Dysuria Hemoglobin A1c 4 Months R73.01 - Impaired fasting glucose Complete Blood Count Auto Diff 4 Months D64.9 - Anemia, unspecified TSH reflex Free T4 4 Months E78.00 - Pure hypercholesterolemia, unspecified Vitamin D 25-OH Total 4 Months E55.9 - Vitamin D deficiency, unspecified Referrals Sleep Medicine Referral R06.81 - Apnea, not elsewhere classified Medications: Refilled cholecalciferol (vitamin D3) 50 mcg PO DAILY 90 tabs 3RF R79.89 - Other specified abnormal findings of blood chemistry Coding Level of Care Code Est Pt Level 4 (69777) Diagnoses Pure hypercholesterolemia E78.00 Impaired fasting glucose R73.01 Vitamin B12 deficiency E53.8 Vitamin D deficiency E55.9 Elevated PSA R97.20 Witnessed apneic spells R06.81 Morbid obesity with BMI of 40.0-44.9, adult E66.01; Z68.41
== END 2023-08-30 14:23 | disposition home or self-care (01) ==
PROVIDERS: PCP Internal Medicine; Visit Provider Internal Medicine
DX: E78.00 Pure hypercholesterolemia, unspecified (principal); E66.01 Morbid (severe) obesity due to excess calories; Z68.41 Body mass index [BMI] 40.0-44.9, adult; R73.01 Impaired fasting glucose; E53.8 Deficiency of other specified B group vitamins; E55.9 Vitamin D deficiency, unspecified; R97.20 Elevated prostate specific antigen [PSA]; R06.81 Apnea, not elsewhere classified; Z90.09 Acquired absence of other part of head and neck
CPT/HCPCS: 99214

== ENCOUNTER 2023-11-08 10:16 | Day surgery (SDC) | payer OTHER, SELFPAY ==
[2023-11-08 11:49] VITALS: BMI 45.5
[2023-11-08 12:11] VITALS: BP 128/80; PULSE 72; RESP 20; TEMP 36.7; O2SAT 97
[2023-11-08] MEDS: Lactated Ringers 1,000 ML 100 ML IVCONT (12:26)
--- NOTE | 2023-11-08 12:45 | HO.ANESPROP2 ---
Documented by User: Eladia Long NP 11/07/23 11:06 HPI - Anesthesia Eval Consult details Narrative: 43yo M for Colonoscopy PMFSH Active Problems Active Problems: All Active Problems (Updated 09/04/23 @ 11:01 by Anson Bruce MD) Elevated PSA (Acute) Pure hypercholesterolemia (Acute) Witnessed apneic spells (Acute) Colon cancer screening (Acute) Vitamin D deficiency (Acute) Vitamin B12 deficiency (Acute) Routine eye exam (Acute) Heel pain, bilateral (Acute) Low vitamin B12 level (Acute) Low vitamin D level (Acute) Impaired fasting glucose (Acute) Superficial foreign body of penis, initial encounter (Acute) Penile lesion (Acute) Morbid obesity with BMI of 40.0-44.9, adult (Acute) Paresthesia of left arm (Acute) Urinary frequency (Acute) Annual physical exam (Acute) Elevated alkaline phosphatase level (Acute) History of lobectomy of thyroid (Acute) Obese (Acute) Obesity (BMI 30-39.9) (Acute) Left thyroid nodule (Acute) Past Medical History Medical History Elevated PSA Pure hypercholesterolemia Vitamin D deficiency Vitamin B12 deficiency Morbid obesity with BMI of 40.0-44.9, adult Obesity (BMI 30-39.9) Left thyroid nodule Family History Family History Father No problems noted. Mother No problems noted. Surgical History Surgical History History of thyroid nodule History of lobectomy of thyroid History of tonsillectomy Social History Social History Housing: House Alcohol intake: current Alcohol intake frequency: holidays/special occasions only Patient Tobacco Use Status: Former Tobacco user Tobacco use type: Cigarette Years Smoked: 30 e-Cigarette/Vaping Use: Never Used Use of substances other than those prescribed or required for medical reasons: No Substance Use Type: Marijuana Are you DNR?: No Advance Directives: No Advance Directives Information Provided: Yes service: No Current occupational status: unemployed Cognitive needs: No Hearing needs: No Vision needs: No Meds Allergies Allergy/AdvReac Type Severity Reaction Status Date / Time No Known Allergies Allergy Verified 08/30/23 14:23 Assessment and Plan Assessment Anesthesia Assessment: Chart Reviewed Documented by User: Jessenia Alston DO 11/08/23 12:50 PMFSH Past Medical History Medical History Elevated PSA Pure hypercholesterolemia Vitamin D deficiency Vitamin B12 deficiency Morbid obesity with BMI of 40.0-44.9, adult Obesity (BMI 30-39.9) Left thyroid nodule Family History Family History Father No problems noted. Mother No problems noted. Family history of problems with anesthesia: No Surgical History Surgical History History of thyroid nodule History of lobectomy of thyroid History of tonsillectomy History of Problems with Anesthesia: No Social History Social History Housing: House Alcohol intake: current Alcohol intake frequency: holidays/special occasions only Patient Tobacco Use Status: Former Tobacco user Tobacco use type: Cigarette Years Smoked: 30 e-Cigarette/Vaping Use: Never Used Use of substances other than those prescribed or required for medical reasons: No Substance Use Type: Marijuana Are you DNR?: No Advance Directives: No Advance Directives Information Provided: Yes service: No Current occupational status: unemployed Cognitive needs: No Hearing needs: No Vision needs: No Meds Allergies Allergy/AdvReac Type Severity Reaction Status Date / Time No Known Allergies Allergy Verified 08/30/23 14:23 Exam Exam Date and Time: November 08, 2023 1245 Height,Weight and Vital Signs: Height 5 ft 9 in Weight 139.706 kg Vital Signs Temperature 98.1 F 11/08/23 12:11 Pulse Rate 72 11/08/23 12:11 Respiratory Rate 20 11/08/23 12:11 Blood Pressure 128/80 11/08/23 12:11 Pulse Oximetry 97 11/08/23 12:11 Oxygen Delivery Method Room Air 11/08/23 12:11 Temperature 98.1 F 11/08/23 12:11 Pulse Rate 72 11/08/23 12:11 Respiratory Rate 20 11/08/23 12:11 Blood Pressure 128/80 11/08/23 12:11 Pulse Oximetry 97 11/08/23 12:11 Oxygen Delivery Method Room Air 11/08/23 12:11 Airway Mallampati Class: III TM Dist: >3cm Neck ROM: Full Loose/Missing/Broken Teeth: No (patient denies any loose or broken teeth) Heart: S1S2 Lungs: CTAB Assessment and Plan Assessment Anesthesia Assessment: Anesthesia Plan Discussed and Chart Reviewed Final Anesthetic Review Family History of Problems with Anesthesia: No History of Problems with Anesthesia: No NPO: Yes ASA Class: III Final Preanesthetic Review: No Changes in Pt Med Stat, Meds/Allgs Chart Reviewed, Consent Obtained/Reviewed and Anes Risks/Benef Reviewed Patient Risk: Intermediate Procedure Risk: Low Anesthetic Plan Anesthetic Plan: MAC: and Agree w/ Assess. and Plan Disposition: Standard PACU
--- NOTE | 2023-11-08 13:10 | P.HPSUR_ITS ---
Pre-Procedural Eval Section A - 24 Hr Update-Section A only Date of Service: 11/08/23 Section B - Complete if H&P > 30 days Chief Complaint: Encounter for screening for malignant neoplasm of Relevant Family History (Specify if Yes): No Relevant Social History: None Present Medications: see Short Stay Collaborative assessment Medical History: Significant History (Elevated PSA Pure hypercholesterolemia V itamin D deficiency Vitamin B12 deficiency Morbid obesity with BMI of 40.0-44.9, adult Obesity (BMI 30-39.9) Left thyroid nodule) History of Previous Operations: Relevant previous surgery/procedure and date(s) (History of thyroid nodule History of lobectomy of thyroid History of tonsillectomy) Allergies: Allergies Allergy/AdvReac Type Severity Reaction Status Date / Time No Known Allergies Allergy Verified 08/30/23 14:23 Review of Systems Sugical H&P ROS: Negative: Constitution, Cardiovascular, Respiratory, Neurological, Psychiatric, Hem-Onc, Allergic/Immunologic, Gastrointestinal, Genitourinary, Musculoskeletal, Integumentary, Endocrine and Eye s/Ears/Nose/Throat Exam Surgical H&P Exam: Normal: HEENT, Normal: Heart, Normal: Lungs, Normal: Extremities, Normal: Abdomen, Normal: Skin and Normal: Neurological Plan Diagnosis/Plan: Unchanged I have reviewed the history and physical and performed a pertinent physical examination on my patient. No changes have occurred unless specified. Time Spent With Patient Time: Total time managing care of this patient today ____ minutes.
--- NOTE | 2023-11-08 13:12 | W.PM.OPN ---
Operative Note Operative Note Date of Service: 11/08/23 Narrative: Operative Information Procedure Description: Colonoscopy Indication: screening Anesthesia: MAC COLONOSCOPY Instrument: Olympus variable stiffness pediatric scope 190L Colonoscopy Monitoring: Vital signs and clinical assessment, continuous EKG monitoring, Pulse oximetry, Carbon Dioxide monitoring and blood pressure monitoring were done throughout the procedure. Colon withdrawal time was 8 minutes. Procedure: The patient was placed in the left lateral decubitis position and pre-procedure medications were administered. After a digital rectal examination of the ano-rectum, the video colonoscope was inserted into the rectum and advanced through the colon to the cecum/TI. The colonoscope was slowly withdrawn in a retrograde panoramic fashion and the colon mucosa was carefully examined including a retroflexed view of the rectum. Findings and interventions are described below. Procedure Difficulty: easy Findings: Terminal Ileum-normal Cecum:normal Ascending Colon: normal Transverse Colon -normal Descending Colon:normal Sigmoid Colon: normal Rectum: Retroflexion with small internal hemorrhoids seen, grade I Anorectum - normal Intervention: none Colon preparation: [place] Bowel Preparation Scale Right colon; 2 Transverse colon: 2 Left colon; 2 (0 = Unprepared colon segment with mucosa not seen due to solid stool that cannot be cleared. 1 = Portion of mucosa of the colon segment seen, but other areas of the colon segment not well seen due to staining, residual stool and/or opaque liquid. 2 = Minor amount of residual staining, small fragments of stool and/or opaque liquid, but mucosa of colon segment seen well. 3 = Entire mucosa of colon segment seen well with no residual staining, small fragments of stool or opaque liquid) Impression and Post Procedure Diagnosis: internal hemorrhoids Plan: High fiber diet leaflet Avoid straining at stool, epsom salts and sitz bath, anusol supps or cream Repeat Colonoscopy in 10 years or earlier if clinically indicated Above findings were reviewed with the patient and relevant handouts were provided if indicated.
[2023-11-08 13:46] VITALS: BP 96/56; PULSE 79; RESP 16; TEMP 37; O2SAT 95
[2023-11-08 14:01] VITALS: BP 139/68; PULSE 82; RESP 20; TEMP 36.6; O2SAT 96
== END 2023-11-08 14:33 | disposition home or self-care (01) ==
PROVIDERS: PCP Internal Medicine; Visit Provider Internal Medicine Gastroenterology
PROC: 0DJD8ZZ Inspection of Lower Intestinal Tract, Via Natural or Artificial Opening Endoscopic (ICD-10-PCS; CPT 45378; principal; 2023-11-08 14:40)
DX: Z12.11 Encounter for screening for malignant neoplasm of colon (principal); K64.0 First degree hemorrhoids; E66.01 Morbid (severe) obesity due to excess calories; Z68.41 Body mass index [BMI] 40.0-44.9, adult
CPT/HCPCS: 45378; J1596; J2704

== ENCOUNTER → 2023-11-08 10:16 | Outpatient (BNV) | payer OTHER, SELFPAY | PROVIDERS: PCP Internal Medicine; Visit Provider Internal Medicine Gastroenterology | DX: Z12.11 Encounter for screening for malignant neoplasm of colon (principal); K64.0 First degree hemorrhoids | CPT/HCPCS: 45378 ==

== ENCOUNTER 2024-01-05 10:38 | Outpatient (AMB) | payer OTHER, SELFPAY ==
--- NOTE | 2024-01-05 10:48 | A.OFFVIS_ITS ---
Vital Signs 01/05/24 10:50 Height 5 ft 9 in Weight 297 lb BMI 43.9 Pulse 102 H Pulse Source Pulse Oximeter Pulse Oximetry (%) 99 Oxygen Delivery Method Room Air Intake Visit Reasons: I-KE-Jeqay-CONF Intake Note: Patient presents apnea. Patient snores and stop breathing while sleeping dry mouth when waking up. Allergies No Known Allergies Allergy (Verified 01/05/24 11:00) Medication List - Last Reconciled 01/05/24 by ROMAN Velasquez cholecalciferol (vitamin D3) 50 mcg PO DAILY cyanocobalamin (vitamin B-12) 1,000 mcg PO DAILY nabumetone 500 mg PO BID terazosin 10 mg PO BEDTIME 30 days HPI Comments Details: 43-yr-old male presents for new in-person patient visit for sleep consultation. Pt reports he is having worsening snoring, sleep difficulties, and daytime sleepiness. He has had gradual weight gain over the years, although he has been exercising steadily over the last year. Pt has h/o left thyroidectomy- currently euthyroid. Otherwise denies any significant PMH. Sleep questionnaire: Have you ever been diagnosed with a sleep disorder? No Have you ever had a sleep study in the past? No Have you ever been treated for a sleep disorder? No Do you take medications for a sleep disorder? No Do you snore? Yes Do you wake up gasping at night? Yes Do you have episodes of apneas? Yes If yes, are they witnessed? Yes Do you have episodes of nocturnal chest pain or dyspnea? may wake up whe ezing/gasping. No SOB or wheezing otheriwse. Do you have difficulty initiating sleep? At times Do you have difficulty maintaining sleep? Yes- wakes up 2-3 x's per night Do you wake up tired? Yes Do you have headaches upon awakening? No Do you wake up with dry mouth or throat? Yes Do you have GERD? No Do you have daytime tiredness or fatigue? Yes Do you have nocturnal leg cramps? At times Do you have symptoms of restless legs? No. But rocks his legs some when he goes to sleep. Do you act out your dreams? Sometimes may talk. Sleep hygiene questionnaire: What is your usual sleep routine? Usual bedtime is at 9:30-10pm; Usual wake-up time is at 6:30am. Do you take naps? No Is your sleep environment cool, dark, and quiet? Yes Do you exercise? 6 days a week- works out at either 9:30am or 4:30pm- 30 min HIT cardio. Do you take caffeine or other stimulants? 1-2 cups in am. Do you use electronics in bed? May use his phone. 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 Hypersomnolence questionnaire: Do you easily fall asleep when inactive? Yes Have you ever had episodes of sudden weakness? No Have you ever had episodes of sudden weakness associated with strong emotions? No [facility] Medical History (Updated 01/05/24 @ 11:37 by ROMAN Velasquez) Elevated PSA Pure hypercholesterolemia Vitamin D deficiency Vitamin B12 deficiency Morbid obesity with BMI of 40.0-44.9, adult Obesity (BMI 30-39.9) Left thyroid nodule Surgical History History of thyroid nodule History of lobectomy of thyroid History of tonsillectomy Family History Father No problems noted. Mother No problems noted. Social History Housing: House Alcohol intake: current Alcohol intake frequency: holidays/special occasions only Patient Tobacco Use Status: Former Tobacco user Tobacco use type: Cigarette Years Smoked: 30 e-Cigarette/Vaping Use: Never Used Substance Use Type: Marijuana service: No Current occupational status: unemployed Cognitive needs: No Hearing needs: No Vision needs: No Review of Systems Const All systems reviewed & are unremarkable except as noted in HPI and below Physical Exam Vital Signs: Last Vital Signs Pulse 102 H 01/05/24 10:50 Pulse Ox 99 01/05/24 10:50 Oxygen Delivery Method Room Air 01/05/24 10:50 BMI result Body Mass Index 43.9 Const General: no acute distress Orientation/consciousness: patient oriented x3 HEENT Other: Mallampati stage 4 Resp Effort & Inspection: able to speak in complete sentences Neuro General: patient oriented x3 Psych Mental Status: mental status grossly normal Speech and movement: Clear speech present Attitude: cooperative Assessment & Plan Assessment & Plan (1) Snoring: Code(s): R06.83 - Snoring Category: Medical (2) Witnessed apneic spells: Code(s): R06.81 - Apnea, not elsewhere classified Category: Medical (3) Excessive daytime sleepiness: Code(s): G47.19 - Other hypersomnia Category: Medical (4) BMI 40.0-44.9, adult: Code(s): Z68.41 - Body mass index [BMI] 40.0-44.9, adult Category: Medical Plan Pt is advised to undergo in-lab PSG w/ ET CO2 to assess for sleep apnea in setting of snoring, EDS, and obesity w/ BMI > 40. Discussed that if sleep study does show sleep apnea, he will need to share this during his DOT examinations. Avoid driving if sleepy. Continue regular exercise. Follow-up upon review of above and in-clinic in 6 months or sooner prn. Orders: Orders RT PSG in-lab sleep study 01/05/24 G47.19 - Other hypersomnia, R06.81 - Apnea, not elsewhere classified, R06.83 - Snoring, Z68.41 - Body mass index [BMI] 40.0- 44.9, adult Coding Level of Care Code New Pt Level 4 (43889) Diagnoses Snoring R06.83 Witnessed apneic spells R06.81 Excessive daytime sleepiness G47.19 BMI 40.0-44.9, adult Z68.41 [place] Sleepiness Scale Questions Sitting and reading: high chance of dozing Watching TV: high chance of dozing Sitting inactive in a theater, movie etc.: high chance of dozing As a passenger in a car for an hour without break: slight chance of dozing Lying down in the afternoon when circumstances permit: high chance of dozing Sitting and talking to someone: would never doze Sitting quietly after lunch without alcohol: high chance of dozing In a car, while stopped for a few minutes in the traffic: would never doze ESS < 10: normal, ESS > 12: pathologic: 16
[2024-01-05 10:50] VITALS: PULSE 102; O2SAT 99; BMI 43.9
== END 2024-01-05 11:52 | disposition home or self-care (01) ==
PROVIDERS: PCP Internal Medicine; Visit Provider Nurse Practitioner Family
DX: R06.83 Snoring (principal); R06.81 Apnea, not elsewhere classified; G47.19 Other hypersomnia; Z68.41 Body mass index [BMI] 40.0-44.9, adult
CPT/HCPCS: 99204

== ENCOUNTER → 2024-01-05 10:38 | Outpatient (BNVA) | payer OTHER, SELFPAY | PROVIDERS: PCP Internal Medicine; Visit Provider Nurse Practitioner Family | DX: G47.19 Other hypersomnia (principal); R06.83 Snoring; R06.81 Apnea, not elsewhere classified | CPT/HCPCS: 99202 ==

== ENCOUNTER 2024-01-08 13:32 | Outpatient (AMB) | payer OTHER, SELFPAY ==
--- NOTE | 2024-01-08 13:39 | A.OFFPC_ITS ---
Vital Signs 01/08/24 13:41 Height 5 ft 9 in Weight 296 lb BMI 43.7 BP 124/70 Blood Pressure Location Lt brachial Position Sitting Pulse 86 Pulse Source Pulse Oximeter Pulse Oximetry (%) 94 Oxygen Delivery Method Room Air Intake Visit Reasons: 4 month f/u Intake Note: Patient is here to follow up on IFG, Hypercholesterolemia. Tack Welder Required: No Zipper Setter: Not Required per policy Accompanied by: Self / Same As Patient Allergies No Known Allergies Allergy (Verified 01/08/24 14:02) Medication List - Last Reconciled 01/08/24 by Anson Bruce MD cholecalciferol (vitamin D3) 50 mcg PO DAILY cyanocobalamin (vitamin B-12) 1,000 mcg PO DAILY nabumetone 500 mg PO BID terazosin 10 mg PO BEDTIME 30 days Tobacco use date assessed: 01/08/24 Dental Screening Dental Screen Date: 08/30/23 HPI 4 month f/u HPI Details Patient comes in today for his follow up visit States that he feels okay He had his screening colonoscopy done a couple of months ago on 11/08/2023 - colonoscopy was normal and he was advised that he will be due for repeat colonoscopy in 10 years He denies any headaches or dizziness Denies any chest pains, no SOB No nausea/vomiting, no abdominal pain No change in bowel habits noted He was not able to get his follow up labs done prior to his visit today Adds that he has been doing everything he can think of, including watching his diet and eating habits, to try to lose weight but has not been able to lose more than a pound Would like to see if he can be tried on the new injectables for weight loss COUNTS INCLUDE 234 BEDS AT THE [facility] Medical History (Updated 01/08/24 @ 14:27 by Anson Bruce MD) Diabetes mellitus Elevated PSA Pure hypercholesterolemia Vitamin D deficiency Vitamin B12 deficiency Morbid obesity with BMI of 40.0-44.9, adult Obesity (BMI 30-39.9) Left thyroid nodule Surgical History History of thyroid nodule History of lobectomy of thyroid History of tonsillectomy Family History Father No problems noted. Mother No problems noted. Social History Housing: House Alcohol intake: current Alcohol intake frequency: holidays/special occasions only Patient Tobacco Use Status: Former Tobacco user Tobacco use type: Cigarette Years Smoked: 30 e-Cigarette/Vaping Use: Never Used Second Hand Smoke Exposure: Yes Substance Use Type: Marijuana service: No Current occupational status: unemployed Cognitive needs: No Hearing needs: No Vision needs: No Questionnaire Thrive Questionnaire Date Thrive assessed: 08/30/23 WESLEY-7 AMB Questionnaire WESLEY-7 Date WESLEY - 7 assessed: 08/30/23 Source: Developed by Drs. Joey Arriola, Aisha Eller, Jim Tolentino and colleagues, with an educational liliana from [employer]. Review of Systems Const Denies chills, Reports fatigue, Denies fever(s), Denies headache(s), Reports snoring and Reports stops breathing during sleep ENT Denies dysphagia, Denies dizziness, Denies otalgia, Denies headache(s), Denies neck pain, Denies odynophagia and Denies sore throat Card Denies chest pain, Denies palpitations and Denies dyspnea Resp Denies cough, Denies dyspnea and Reports snoring GI Denies abdominal pain, Denies constipation, Denies dysphagia, Denies heartburn, Denies diarrhea, Denies nausea, Denies odynophagia and Denies vomiting Denies dysuria, Denies nocturia and Denies urinary frequency Musc Denies back pain and Denies neck pain Skin/Breast Denies rash Neuro Denies dizziness and Denies headache(s) Endo Reports fatigue and Denies palpitations Physical exam (Primary Care) Vital Signs: Last Vital Signs Pulse 86 01/08/24 13:41 BP 124/70 01/08/24 13:41 Pulse Ox 94 01/08/24 13:41 Oxygen Delivery Method Room Air 01/08/24 13:41 BMI result Body Mass Index 43.7 Tobacco/Smoking Status: Tobacco use Status Tobacco use date assessed 01/08/24 01/08/24 13:41 Patient Tobacco Use Status Former Tobacco user 01/08/24 13:41 Tobacco use type Cigarette 01/08/24 13:41 e-Cigarette/Vaping Use Never Used 01/08/24 13:41 Thrive Assessment: Date of Thrive Assessment Date Thrive assessed 08/30/23 01/08/24 13:41 Const General: no acute distress and alert HENMT Ears: TM's normal bilaterally and EAC's normal Throat: Yes posterior oropharynx normal and Yes tonsils normal (no TP congestion) Neck Neck: Yes no lymphadenopathy and Yes supple Thyroid: Thyroid normal Resp Auscultation: clear to auscultation bilaterally, no rales and no wheezes Cardio Rate: regular rate Rhythm: regular rhythm Heart sounds: no murmurs GI Palpation (GI): Soft to palpation and nontender Auscultation: normal bowel sounds General: Yes no CVA tenderness Back/Spine/Pelvis Back: no CVA tenderness Thoracic/Lumbar Spine: No lumbar spinal tenderness Skin Rashes: no rashes Extrem General: Yes no clubbing, cyanosis or edema Results AMB Hemoglobin A1c AMB Hemoglobin A1c 6.9 % Last Edit by ALPHONSE Garza on 01/08/24 13:58 Results Reviewed Results Reviewed: Laboratory Last Values Hgb A1c (Clinic) 6.9 % (4.0-6.0) H 01/08/24 13:42 Assessment and Plan Assessment & Plan (1) Pure hypercholesterolemia: Code(s): E78.00 - Pure hypercholesterolemia, unspecified Plan: Patient was not able to get his follow up labs done prior to coming in today - states that he forgot about his labs and he can go and get them done tomorrow morning He is reminded that his cholesterol levels were high and have increased from the previous year on his recent labs so we should follow up on these ELIZABETH Reinforced low-cholesterol diet Will recheck his labs and fasting lipids again in 4 months for follow-up (2) Diabetes mellitus: Code(s): E11.9 - Type 2 diabetes mellitus without complications Qualifiers: Diabetes mellitus complication status: with hyperglycemia Diabetes mellitus terminal block assembler insulin use: without fci use Diabetes mellitus type: type 2 Qualified Code(s): E11.65 - Type 2 diabetes mellitus with hyperglycemia Plan: Newly-diagnosed - in-office HgbA1c done today is at 6.9% (HgbA1c was previously at 6.3% a few months ago) - goal is at least <6.5% Reinforced low calorie/low carb diet; exercise as tolerated Per request, he will be started on Semaglutide 0.25 mg SQ once a week for weight loss but advised that this may also help regulate his blood sugar better (3) Vitamin B12 deficiency: Code(s): E53.8 - Deficiency of other specified B group vitamins Plan: Continue Vitamin B12 1000 mcg QD (4) Vitamin D deficiency: Code(s): E55.9 - Vitamin D deficiency, unspecified Plan: Continue Vitamin D3 2000 units QD Will recheck his Vitamin D level in 4 months for follow up (5) Elevated PSA: Code(s): R97.20 - Elevated prostate specific antigen [PSA] Plan: Patient is advised that his PSA level was elevated on his most recent labs in May 2023 and that he should continue to follow-up with urology for this (6) Witnessed apneic spells: Code(s): R06.81 - Apnea, not elsewhere classified Plan: Patient was previously referred to Sleep Medicine for further evaluation and management and to rule out sleep apnea and he is now seeing Sleep Medicine States that he is currently scheduled for a sleep study in a few weeks (7) Morbid obesity with BMI of 40.0-44.9, adult: Code(s): E66.01 - Morbid (severe) obesity due to excess calories; Z68.41 - Body mass index [BMI] 40.0-44.9, adult Plan: Reinforced diet/exercise as tolerated/lose weight Per request, he will be started on Semaglutide 0.25 mg SQ once a week to help him lose weight Plan Follow up in 4 months Orders: Orders Hemoglobin A1c 4 Months E11.9 - Type 2 diabetes mellitus without complications Lipid Panel 4 Months E78.00 - Pure hypercholesterolemia, unspecified Comprehensive [place]. Panel Fast 4 Months E78.00 - Pure hypercholesterolemia, unspecified AMB Hemoglobin A1c Today R73.01 - Impaired fasting glucose Complete Blood Count Auto Diff 4 Months D64.9 - Anemia, unspecified Medications: New semaglutide (weight loss) (Wegovy) administer weeks 1 through 4 of therapy 0.25 mg (0.5 mL) subcut QWEEK 4 weeks 2 mL 1RF Coding Level of Care Code Est Pt Level 4 (75538) Complex EM visit Add On G2211 Diagnoses Pure hypercholesterolemia E78.00 Type 2 diabetes mellitus with hyperglycemia, without long-term current use of insulin E11.65 Diabetes mellitus complication status: with hyperglycemia Diabetes mellitus terminal block assembler insulin use: without fci use Diabetes mellitus type: type 2 Vitamin B12 deficiency E53.8 Vitamin D deficiency E55.9 Elevated PSA R97.20 Witnessed apneic spells R06.81 Morbid obesity with BMI of 40.0-44.9, adult E66.01; Z68.41
[2024-01-08 13:41] VITALS: BP 124/70; PULSE 86; O2SAT 94; BMI 43.7
== END 2024-01-08 14:16 | disposition home or self-care (01) ==
PROVIDERS: PCP Internal Medicine; Visit Provider Internal Medicine
DX: E11.65 Type 2 diabetes mellitus with hyperglycemia (principal); E66.01 Morbid (severe) obesity due to excess calories; Z68.41 Body mass index [BMI] 40.0-44.9, adult; E78.00 Pure hypercholesterolemia, unspecified; E53.8 Deficiency of other specified B group vitamins; E55.9 Vitamin D deficiency, unspecified; R97.20 Elevated prostate specific antigen [PSA]; R06.81 Apnea, not elsewhere classified; R73.01 Impaired fasting glucose
CPT/HCPCS: 83036; 99214; G2211

== ENCOUNTER 2024-01-09 09:34 | Outpatient (REF) | payer OTHER, SELFPAY ==
[2024-01-09 09:50] LABS: MANUAL DIFF FLAG NO
[2024-01-09 10:54] LABS: Basophils Percent Auto 0.3 % (0-2); Eosinophils Absolute Auto 0.1 X10*3/uL (0.0-0.4); Eosinophils Percent Auto 1.8 % (0-4); Hematocrit 43.2 % (42.0-52.0); Hemoglobin 13.7 g/dl (14.0-18.0); Imm Gran Abs Auto 0.03 X10*3/uL (0.00-0.03); Imm Gran Pct Auto 0.4 % (0.0-0.4); Lymphocytes Absolute Auto 2.9 X10*3/uL (1.2-4.9); Lymphocytes Percent Auto 37.2 % (20-40); Mean Corpuscular HGB Conc 31.7 g/dl (31.0-36.0); Mean Platelet Volume 10.1 fL (9.4-12.4); Monocytes Absolute Auto 0.6 X10*3/uL (0.1-1.2); Neutrophils Percent Auto 52.3 % (45-73); Platelet Count 280 X10*3/uL (160-400); Red Blood Count 5.08 X10*6/uL (4.60-5.80); Red Cell Distribution Width 14.3 % (11.0-16.0); White Blood Count 7.7 X10*3/uL (4.8-10.8)
[2024-01-09 11:10] LABS: Estimated Average Glucose 140 mg/dL; Hemoglobin A1c % 6.5 % (<6.0)
[2024-01-09 11:30] LABS: Appearance Urine Clear; Color Urine Yellow; Glucose Urine UA Negative (Negative); Leukocyte Esterase Urine Negative (Negative); Nitrite Urine Negative (Negative); PH 8.5 (5.0-9.0); Specific Gravity - Urine 1.025 (1.005-1.025); Urine Blood Negative (Negative); Urine Ketones Negative (Negative); Urine Protein Negative (Neg-Trace)
[2024-01-09 11:42] LABS: Alanine Aminotransferase 17 U/L (0-40); Albumin Level 3.8 g/dL (3.5-5.0); Alkaline Phosphatase 84 U/L (39-117); Anion Gap 10 (12-20); Aspartate Amino Transferase 22 U/L (5-37); Bilirubin Total 0.5 mg/dL (0.0-1.0); Blood Urea Nitrogen 18 mg/dL (9-16); Carbon Dioxide 31 mmol/L (22-29); Chloride 102 mmol/L (96-108); Cholesterol 155 mg/dL (<200); Estimated Glomerular Filt Rate > 60; Glucose Fasting 124 mg/dL (60-99); HDL Cholesterol 39 mg/dL (>40); LDL Cholesterol Calculated 104 mg/dL (<100); Potassium 4.4 mmol/L (3.3-5.1); Sodium 139 mmol/L (135-145); Total Protein 7.1 g/dL (6.5-8.0); Triglycerides 63 mg/dL (<150)
[2024-01-09 12:01] LABS: TSH reflex Free T4 0.85 uIU/mL (0.32-4.0); Vitamin D 25-OH Total 23.8 ng/mL (>30)
== END 2024-01-09 09:35 | disposition home or self-care (01) ==
LOC: HO.LAB 09:34
PROVIDERS: PCP Internal Medicine; Visit Provider Internal Medicine
DX: E11.9 Type 2 diabetes mellitus without complications (principal); D64.9 Anemia, unspecified; E78.00 Pure hypercholesterolemia, unspecified; E55.9 Vitamin D deficiency, unspecified; R30.0 Dysuria
CPT/HCPCS: 36415; 80053; 80061; 81003; 82306; 83036; 84443; 85025

== ENCOUNTER → 2024-01-31 20:30 | Outpatient (REF) | payer OTHER, SELFPAY | LOC: HO.SL 20:30 | PROVIDERS: PCP Internal Medicine; Visit Provider Nurse Practitioner Family | DX: G47.33 Obstructive sleep apnea (adult) (pediatric) (principal); G47.19 Other hypersomnia; R06.83 Snoring | CPT/HCPCS: 95810 ==

== ENCOUNTER → 2024-01-31 23:10 | Outpatient (BNV) | payer OTHER, SELFPAY | PROVIDERS: PCP Internal Medicine; Visit Provider Psychiatry & Neurology Neurology | DX: G47.33 Obstructive sleep apnea (adult) (pediatric) (principal) | CPT/HCPCS: 95810 ==

== ENCOUNTER 2024-07-24 13:01 | Outpatient (AMB) | payer OTHER, SELFPAY ==
[2024-07-24 13:03] VITALS: BP 128/86; PULSE 97; O2SAT 96; BMI 43.1
--- NOTE | 2024-07-24 13:03 | MHC.OFFVIS ---
Vital Signs 07/24/24 13:03 Height 5 ft 9 in Weight 292 lb 2 oz BMI 43.1 BP 128/86 Blood Pressure Location Rt brachial Position Sitting Pulse 97 Pulse Source Pulse Oximeter Pulse Oximetry (%) 96 Oxygen Delivery Method Room Air Intake Visit Reasons: 7 Month F/U Intake Note: Pt presents to the office today for a 7 month follow up. Pt states he is overall feeling well. Allergies No Known Allergies Allergy (Verified 07/24/24 13:05) HPI Comments Details: 44 year old male here for evaluation of his sleep apnea. He had a sleep study done in February 2024, was never able to merchandise pickup/receiving associate his CPAP machine. Polysomnograph study: Autopap 5-20 cmH20 Mild Sleep Apnea, with PLMS- Oxygen Roger is 82% AHI is 8 His B12/ D / was low started him on supplementation, TSH was normal. Still having difficulty with intermittent sleep and getting up 2-3 times for the bathroom. Snores loudly and wakes himself up. Sleeps on his left side then turns onto the right side as he is able to tolerate, does not sleep on his back. Leg movements, are constant during sleep. He denies numbness, pins and needles, denies RLS. Says he knows he moves his feet but was not aware of the Denies morning headaches, wears glasses. Mood is stable. Memory is okay, forgets things at times. BMI is elevated will follow up in 3 months. Mallampti score is 4. He is a diabetic A1c was 6.9 now it is 6.5, he is trying to lose weight. [facility] Medical History (Updated 01/08/24 @ 14:27 by Anson Bruce MD) Diabetes mellitus Elevated PSA Pure hypercholesterolemia Vitamin D deficiency Vitamin B12 deficiency Morbid obesity with BMI of 40.0-44.9, adult Obesity (BMI 30-39.9) Left thyroid nodule Surgical History History of thyroid nodule History of lobectomy of thyroid History of tonsillectomy Family History Father No problems noted. Mother No problems noted. Social History Housing: House Alcohol intake: current Alcohol intake frequency: holidays/special occasions only Patient Tobacco Use Status: Former Tobacco user Tobacco use type: Cigarette Years Smoked: 30 e-Cigarette/Vaping Use: Never Used Second Hand Smoke Exposure: Yes Substance Use Type: Marijuana service: No Current occupational status: unemployed Cognitive needs: No Hearing needs: No Vision needs: No Physical Exam Vital Signs: Last Vital Signs Pulse 97 07/24/24 13:03 BP 128/86 07/24/24 13:03 Pulse Ox 96 07/24/24 13:03 Oxygen Delivery Method Room Air 07/24/24 13:03 BMI result Body Mass Index 43.1 Assessment & Plan Assessment & Plan (1) BMI 40.0-44.9, adult: Code(s): Z68.41 - Body mass index [BMI] 40.0-44.9, adult Category: Medical (2) Snoring: Code(s): R06.83 - Snoring Category: Medical (3) Excessive daytime sleepiness: Code(s): G47.19 - Other hypersomnia Category: Medical Plan STEW : Will follow up with him regarding picking up CPAP and supplies, order is sent again today for him to merchandise pickup/receiving associate supplies. APAP therapy shuld be [id number]. BMI 43 He will continue using Wegovy, PCP is able to Request as patient has Diabetes and weekly use is going to support weight loss and blood sugar control. Patient Education: Optimizing sleep is pertinent for numerous co-morbidities such as Cardiovascular Events, Myocardial Infarction and Hypertension. Explained the use of Terazosin for detrusor muscle relaxation and emptying of the bladder to avoid multiple night time visits to the bathroom, and optimize sleep. Coding Level of Care Code Est Pt Level 3 (69827) Diagnoses BMI 40.0-44.9, adult Z68.41 Snoring R06.83 Excessive daytime sleepiness G47.19 Time Spent (min) 30 Comment Baseline STEW
--- OUTSIDE RECORDS SUMMARY | 2024-07-24 13:03 | XMS_ITS | Data Portability ---
Author Organization [facility], [address] Address [address] [place] [id number] Assessment No assessment recorded. Plan of Treatment Reminders Order Date Submit Date Provider Last Modified By Organization Details Last Modified Time Details Appointments None record ed. Lab None record ed. Referral None record ed. Procedures None record ed. Surgeries None record ed. Imaging None record ed. Medication Orders None record ed. Patient TargetsNo targets recorded. Patient InstructionsNo instructions recorded. Reason for Referral None Reported. Procedures Surgical History Date Name Laterality Status Provider Name and Address Organization Details Recorded Time 3 OC-DOT PHYSICAL completed DEISY MARMOLEJO [employer] 12/26/2022 14:27:53 Imaging Results None recorded. Procedure Notes None recorded. Medical Equipment None Reported. Medications Name Sig Start Date Stop Date Status Note LastModified by Organization Details LastModified Time terazosin 5 mg capsule TAKE 1 CAPSULE BY MOUTH AT BEDTIME active Not Available Not Available No t Available terazosin 10 mg capsule TAKE 1 CAPSULE BY MOUTH AT BEDTIME active Not Available Not Available No t Available Vitamin B-12 1,000 mcg tablet TAKE 1 TABLET BY MOUTH EVERY DAY active Not Available Not Available No t Available nabumetone 500 mg tablet TAKE 1 TABLET BY MOUTH TWICE A DAY active Not Available Not Available No t Available Vitamin D3 50 mcg (2,000 unit) tablet TAKE 1 TABLET BY MOUTH EVERY DAY active Not Available Not Available No t Available Vitals None Recorded Social History None recorded. Functional Status None recorded. Mental Status None recorded. Family History Nothing Reported. Medical History No medical history recorded. Past Encounters Encounter ID Performer Location Encounter Start Date Encounter Closed Date Diagnosis/Indication Diagnosis SNOMED-CT Code Diagnosis ICD10 Code [id number] [facility] [address] [place] [address] 11/02/2020 13:02:42 11/02/2020 14:26:00 [id number] [address] [facility] [place] [address] 05/02/2020 10:22:51 05/02/2020 13:05:49 [id number] [address] [facility] [place] [address] 01/28/2020 18:10:26 01/28/2020 18:45:36 [id number] [address] [facility] [place] [address] 01/09/2021 15:47:52 01/09/2021 17:45:26 [id number] Dilcia Haas MD [address] [facility] [place] [address] 12/26/2022 13:26:40 12/26/2022 14:55:53 Senior Data Mining Analyst license medical examination [id number] Z02.4 Physical examination [phone] Z02.4 Health Concerns Section Related Observation LastModified by Organization Detai ls LastModified Time None Recorded Concern Status LastModified by Organization Details LastModified Time None Recorded Advance Directives Directive None Recorded Payers Encounter Date Sequence Insurance Name Policy Number Policy Oliveira Covered Member ID Oliveira Member ID Guarantor Name 01/28/2020 1 [employer] [employer] - HEALTH NET PLAN (MEDICAID HMO) DARY Edmonds [id number] Albaro Edmonds 12/26/2022 OC-PAY AT TIME OF SERVICE 2022 Albaro Edmonds OC-PAY AT TIME OF SERVICE Albaro Edmonds
== END 2024-07-24 13:35 | disposition home or self-care (01) ==
PROVIDERS: PCP Internal Medicine; Visit Provider Physician Assistant Medical
DX: Z68.41 Body mass index [BMI] 40.0-44.9, adult (principal); R06.83 Snoring; G47.19 Other hypersomnia
CPT/HCPCS: 99213

== ENCOUNTER → 2024-07-24 13:01 | Outpatient (BNVA) | payer OTHER, SELFPAY | PROVIDERS: PCP Internal Medicine; Visit Provider Nurse Practitioner Family | DX: E66.9 Obesity, unspecified (principal); G47.19 Other hypersomnia; R06.83 Snoring; Z68.41 Body mass index [BMI] 40.0-44.9, adult | CPT/HCPCS: 99212 ==

== ENCOUNTER 2024-11-12 08:00 | Outpatient (REF) | payer OTHER, SELFPAY ==
--- OUTSIDE RECORDS SUMMARY | 2024-11-12 08:08 | XMS_ITS | Data Portability ---
Author Organization [facility], [address] Address [address] [place] [address] Assessment No assessment recorded. Plan of Treatment [...] Recorded Time 3 OC-DOT PHYSICAL completed DEISY MARMLOEJO [employer] 12/26/2022 14:27:53 Imaging Results None recorded. Procedure [...] Diagnosis/Indication Diagnosis SNOMED-CT Code Diagnosis ICD10 Code Diagnosis Note [id number] [address] [address] [place] [address] 11/02/2020 13:02:42 11/02/2020 14:26:00 [id number] [address] [facility] [place] [address] 05/02/2020 10:22:51 05/02/2020 13:05:49 [id number] [address] [facility] [place] [address] 01/28/2020 18:10:26 01/28/2020 18:45:36 [id number] [address] [facility] [place] [address] 01/09/2021 15:47:52 01/09/2021 17:45:26 [id number] Dilcia Haas MD [address] [facility] [place] [address] 12/26/2022 13:26:40 12/26/2022 14:55:53 Musculoskeletal Physiotherapist license medical examination [id number] Z02.4 Physical examination 588 0005 Z02.4 Health [...] HEALTH NET PLAN (MEDICAID HMO) DARY Edmonds [id number] Albaro Edmonds 12/26/2022 OC-PAY AT TIME OF SERVICE 2022 Albaro Edmonds OC-PAY AT TIME OF SERVICE OC-PAY AT TIME OF SERVICE Albaro Edmonds
--- OUTSIDE RECORDS SUMMARY | 2024-11-12 08:08 | XMS_ITS | Clinical Summary ---
Author Organization [facility] Address [address] [place] [id number] Care Team Providers Care Air Director Name Role Phone Unavailable Primary Care Provider Unavailabl e Allergies No known active allergies Social History Tobacco Use Types Packs/Day Years Used Date Smoking Tobacco: Never Assessed Sex and Gender Information Value Date Recorded Sex Assigned at Not on file Gender Identity Not on file Sexual Orientation Not on file Last Filed Vital Signs Vital Sign Reading Time Taken Comments Blood Pressure 135/79 11/22/2020 12:56 PM EDT Pulse 70 11/22/2020 12:56 PM EDT Temperature 36.6 ??C (97.8 ??F) 11/22/2020 12:56 PM E DT Respiratory Rate - - Oxygen Saturation 95% 11/22/2020 12:56 PM EDT Inhaled Oxygen Concentration - - Weight - - Height - - Body Mass Index - - Plan of Treatment Health Maintenance Due Date Last Done Comments Hepatitis C Virus Screening 1978 HIV Screening 1991 DTaP/Tdap/Td Vaccines (1 - Tdap) 1997 Hepatitis B Vaccines (1 of 3 - 19+ 3-dose series) 1997 Colonoscopy 2023 Influenza Vaccine 03/07/2024 COVID-19 Vaccine ( - 2023-2 5 season) 2024 Pneumococcal Vaccine: Pediat lucinda (0-5 Years) and At-Risk Patients (6 to 49 Years) Aged Out No longer eligible b ased on patient's age to complete this topic
[2024-11-12 08:19] LABS: MANUAL DIFF FLAG NO
[2024-11-12 08:33] LABS: Basophils Percent Auto 0.4 % (0-2); Eosinophils Absolute Auto 0.1 X10*3/uL (0.0-0.4); Eosinophils Percent Auto 1.1 % (0-4); Hemoglobin 15.2 g/dl (14.0-18.0); Imm Gran Abs Auto 0.03 X10*3/uL (0.00-0.03); Imm Gran Pct Auto 0.4 % (0.0-0.4); Lymphocytes Absolute Auto 3.1 X10*3/uL (1.2-4.9); Lymphocytes Percent Auto 37.8 % (20-40); Mean Corpuscular HGB Conc 32.3 g/dl (31.0-36.0); Mean Corpuscular Hemoglobin 28.1 pg (27.0-33.0); Mean Corpuscular Volume 86.9 fL (80.0-98.0); Mean Platelet Volume 9.5 fL (9.4-12.4); Monocytes Absolute Auto 0.6 X10*3/uL (0.1-1.2); Monocytes Percent Auto 7.3 % (2-11); Neutrophils Absolute Auto 4.4 x10*3/uL (2.0-8.3); Platelet Count 271 X10*3/uL (160-400); Red Blood Count 5.41 X10*6/uL (4.60-5.80); Red Cell Distribution Width 13.2 % (11.0-16.0); White Blood Count 8.3 X10*3/uL (4.8-10.8)
[2024-11-12 08:36] LABS: Appearance Urine Clear; Color Urine Yellow; Glucose Urine UA Negative (Negative); Leukocyte Esterase Urine Negative (Negative); Nitrite Urine Negative (Negative); Specific Gravity - Urine 1.025 (1.005-1.025); Urine Blood Negative (Negative); Urine Ketones Negative (Negative); Urine Protein Negative (Neg-Trace)
[2024-11-12 08:41] LABS: Estimated Average Glucose 140 mg/dL; Hemoglobin A1C 190.4225 umol/L; Hemoglobin A1c % 6.5 % (<6.0); Total Hemoglobin (HGBA1C) 4008.7993 umol/L
[2024-11-12 09:18] LABS: Creatinine Urine 178.45 mg/dL; Microalbum/Creatinine Ratio Ur 7.2 ug/mg cr (<30)
[2024-11-12 09:19] LABS: Alanine Aminotransferase 18 U/L (0-40); Albumin Level 3.9 g/dL (3.5-5.0); Alkaline Phosphatase 85 U/L (39-117); Anion Gap 9 (12-20); Aspartate Amino Transferase 25 U/L (5-37); Bilirubin Total 0.3 mg/dL (0.0-1.0); Blood Urea Nitrogen 15 mg/dL (9-16); Carbon Dioxide 27 mmol/L (22-29); Chloride 108 mmol/L (96-108); Cholesterol 176 mg/dL (<200); Estimated Glomerular Filt Rate > 60; Glucose Fasting 126 mg/dL (60-99); HDL Cholesterol 35 mg/dL (>40); LDL Cholesterol Calculated 124 mg/dL (<100); Potassium 4.2 mmol/L (3.3-5.1); Sodium 140 mmol/L (135-145); Total Protein 7.2 g/dL (6.5-8.0); Triglycerides 86 mg/dL (<150)
[2024-11-12 09:37] LABS: TSH reflex Free T4 1.32 uIU/mL (0.32-4.0); Vitamin D 25-OH Total 14.8 ng/mL (>30)
== END 2024-11-12 08:01 | disposition home or self-care (01) ==
LOC: HO.LAB 08:00
PROVIDERS: PCP Internal Medicine; Visit Provider Internal Medicine
DX: D64.9 Anemia, unspecified (principal); E78.00 Pure hypercholesterolemia, unspecified; R30.0 Dysuria; E11.9 Type 2 diabetes mellitus without complications; E55.9 Vitamin D deficiency, unspecified
CPT/HCPCS: 36415; 80053; 80061; 81003; 82043; 82306; 82570; 83036; 84443; 85025

== ENCOUNTER 2024-11-19 15:00 | Outpatient (AMB) | payer OTHER, SELFPAY ==
[2024-11-19 15:01] VITALS: BP 136/84; PULSE 118; O2SAT 97; BMI 44.7
--- NOTE | 2024-11-19 15:01 | A.OFFPC_ITS ---
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 Accompanied by: Self / Same As Patient Allergies No Known Allergies Allergy (Verified 11/19/24 15:29) Medication List - Last Reconciled 11/19/24 by Anson Bruce MD cholecalciferol (vitamin D3) 50 mcg PO DAILY cyanocobalamin (vitamin B-12) 1,000 mcg PO DAILY nabumetone 500 mg PO BID terazosin 10 mg PO BEDTIME 30 days Tobacco use date assessed: 11/19/24 Dental Screening Dental Screen Date: 11/19/24 Did you have a dental visit in the last 12 months?: Yes Did you have a dental problem in the last 6 months where you did not have access to dental care?: No Was dental information given to patient?: Patient has dentist HPI obesity, DM, hyperlipidemia HPI Details Patient comes in today for his follow up visit - he was last seen here in January 2024 States that he feels okay He denies any headaches or dizziness Denies any chest pains, no SOB No nausea/vomiting, no abdominal pain No change in bowel habits noted Needs his Vitamin D Rx refilled He was previously started on Semaglutide but due to insurance restrictions, this was changed over to Tirzapatide He had his follow up labs done last week - to discuss his results [facility] Medical History (Updated 11/25/24 @ 00:53 by Anson Bruce MD) Obstructive sleep apnea Diabetes mellitus Elevated PSA Pure hypercholesterolemia Vitamin D deficiency Vitamin B12 deficiency Morbid obesity with BMI of 40.0-44.9, adult Obesity (BMI 30-39.9) Left thyroid nodule Surgical History History of thyroid nodule History of lobectomy of thyroid History of tonsillectomy Family History Father No problems noted. Mother No problems noted. Social History Housing: House Alcohol intake: current Alcohol intake frequency: holidays/special occasions only Patient Tobacco Use Status: Former Tobacco user Tobacco use type: Cigarette Years Smoked: 30 e-Cigarette/Vaping Use: Never Used Second Hand Smoke Exposure: Yes Substance Use Type: Marijuana service: No Current occupational status: unemployed Current occupational exposures/hazards: No Cognitive needs: No Hearing needs: No Vision needs: No Questionnaire PHQ-9 Over the last 2 weeks, how often have you been bothered by any of the following problems? 1. Little interest or pleasure in doing things: not at all 2. Feeling down, depressed, or hopeless: not at all 3. Trouble falling or staying asleep, or sleeping too much: not at all 4. Feeling tired or having little energy: not at all 5. Poor appetite or overeating: not at all 6. Feeling bad about yourself - or that you are a failure or have let yourself or your family down: not at all 7. Trouble concentrating on things, such as reading the newspaper or watching television: not at all 8. Moving or speaking so slowly that other people could have noticed. Or the opposite - being so fidgety or restless that you have been moving around a lot more than usual: not at all 9. Thoughts that you would be better off or of hurting yourself in some way: not at all Total score: 0 Depression Screening Interpretation: Negative Depression Screening Done: Yes 49703 - PHQ-9 Billing: Yes Source: Developed by Drs. Joey Arriola, Aisha Eller, Jim Tolentino and colleagues, with an educational liliana from [employer]. Thrive Questionnaire Date Thrive assessed: 11/19/24 I am a: Patient What is your living situation today?: I have a steady place to live Within the past 12 months, did the food you bought not last and you didn't have the money to get more?: Never true Within the past 12 months, did you worry whether your food would run out before you got money to buy more?: Never true Do you have trouble paying for medicines?: No Do you have trouble getting transportation to medical appointments?: No Do you have trouble paying your heating and electricity bill?: No Do you have trouble taking care of your child, family member or friend?: No Do you have trouble with day-to-day activities such as bathing, preparing meals, shopping, managing finances, etc.?: No Are you currently unemployed and looking for a job?: No Are you interested in more education?: No Please select the resources that you would like help with: None Currently or been in a relationship where the following occur: No concerns reported THRIVE Score: 0 AUDIT C Alcohol Use Questionnaire (AUDIT-C) 1. How often do you have a drink containing alcohol?: Monthly or less 2. How many drinks containing alcohol do you have on a typical day when you are drinking?: 1 or 2 3. How often do you have six or more drinks on one occasion?: Less than monthly Total Score: 2 Score Reviewed/Action Taken: Yes WESLEY-7 AMB Questionnaire WESLEY-7 Date WESLEY - 7 assessed: 11/19/24 Feeling nervous, anxious, or on edge: 0 = Not at all Not being able to stop or control worryin = Not at all Worrying too much about different things: 0 = Not at all Trouble relaxin = Not at all Being so restless that it is hard to sit still: 0 = Not at all Becoming easily annoyed or irritable: 0 = Not at all Feeling afraid as if something awful might happen: 0 = Not at all Total WESLEY-7 score (0-4 normal; 5-9 mild; 10-14 moderate; 15-21 severe): 0 Source: Developed by Drs. Joey Arriola, Aisha Eller, Jim Tolentino and colleagues, with an educational liliana from [employer]. Review of Systems Const Denies chills, Reports fatigue, Denies fever(s) and Denies headache(s) ENT Denies dysphagia, Denies dizziness, Denies otalgia, Denies headache(s), Denies neck pain, Denies odynophagia and Denies sore throat Card Denies chest pain, Denies palpitations and Denies dyspnea Resp Denies chest congestion, Denies cough and Denies dyspnea GI Denies abdominal pain, Denies constipation, Denies dysphagia, Denies heartburn, Denies diarrhea, Denies nausea, Denies odynophagia and Denies vomiting Denies difficulty urinating, Denies dysuria, Denies nocturia and Denies urinary frequency Musc Denies back pain and Denies neck pain Skin/Breast Denies rash Neuro Denies dizziness and Denies headache(s) Endo Reports fatigue and Denies palpitations Physical exam (Primary Care) Vital Signs: Last Vital Signs Pulse 118 H 11/19/24 15:01 BP 136/84 11/19/24 15:01 Pulse Ox 97 11/19/24 15:01 Oxygen Delivery Method Room Air 11/19/24 15:01 BMI result Body Mass Index 44.7 Tobacco/Smoking Status: Tobacco use Status Tobacco use date assessed 11/19/24 11/19/24 15:03 Patient Tobacco Use Status Former Tobacco user 11/19/24 15:03 Tobacco use type Cigarette 11/19/24 15:03 e-Cigarette/Vaping Use Never Used 11/19/24 15:03 PHQ-9: PHQ-9 Score PHQ-9: Total score 0 11/19/24 15:41 Depression Screening Interpretation: Negative Thrive Assessment: Date of Thrive Assessment Date Thrive assessed 11/19/24 11/19/24 15:03 Currently or been in a relationship where the following occur: No concerns reported Const General: no acute distress and alert HENMT Ears: TM's normal bilaterally and EAC's normal Throat: Yes posterior oropharynx normal and Yes tonsils normal (no TP congestion) Neck Neck: Yes supple and No lymphadenopathy Thyroid: Thyroid normal Resp Auscultation: clear to auscultation bilaterally, no rales and no wheezes Cardio Rate: regular rate Rhythm: regular rhythm Heart sounds: no murmurs GI Palpation (GI): Soft to palpation and nontender Auscultation: normal bowel sounds General: Yes no CVA tenderness Back/Spine/Pelvis Back: no CVA tenderness Thoracic/Lumbar Spine: No lumbar spinal tenderness Skin Rashes: no rashes Extrem General: Yes no clubbing, cyanosis or edema Results Reviewed Results Reviewed: Laboratory Tests 11/12/24 11/12/24 08:16 08:17 WBC 8.3 Hgb 15.2 Hct 47.0 Plt Count 271 Sodium 140 Potassium 4.2 Creatinine 0.89 Estimated GFR > 60 Fasting Glucose 126 H Hemoglobin A1c % 6.5 H Calcium 9.0 AST 25 ALT 18 Triglycerides 86 Cholesterol 176 LDL Cholesterol, Calc 124 H HDL Cholesterol 35 L 25-OH Vitamin D Total 14.8 L TSH 1.32 Urine pH 8.0 Ur Specific [place] 1.025 Urine Protein Negative Urine Glucose (UA) Negative Urine Blood Negative Urine Nitrite Negative Ur Leukocyte Esterase Negative Microalb/Creat Ratio 7.2 Coding Level of Care Code Est Pt Level 4 (55588) Diagnoses Pure hypercholesterolemia E78.00 Type 2 diabetes mellitus with hyperglycemia, without long-term current use of insulin E11.65 Diabetes mellitus type: type 2 Diabetes mellitus local company intermodal truck driver insulin use: without longterm use Diabetes mellitus complication status: with hyperglycemia Vitamin B12 deficiency E53.8 Vitamin D deficiency E55.9 Elevated PSA R97.20 Obstructive sleep apnea G47.33 Morbid obesity with BMI of 40.0-44.9, adult E66.01; Z68.41 Additional Codes PHQ-9 - 48375 - PHQ-9 Billing: Yes ([id number]) Assessment & Plan Assessment & Plan (1) Pure hypercholesterolemia: Code(s): E78.00 - Pure hypercholesterolemia, unspecified Category: Medical Plan: Results of his labs done last week reviewed and discussed with patient - he is advised that his cholesterol levels are within normal range but as he is a diabetic, his LDL cholesterol should ideally be < 100 mg/dL and closer to 70 mg/dl (he is currently at 124 mg/dl) Reinforced low-cholesterol diet Have advised patient that per current recommendations, diabetics are automatically recommended to be started on statins for risk reduction Patient would like to hold off on this for now Will recheck his labs and fasting lipids again in 4 months for follow-up (2) Diabetes mellitus: Code(s): E11.9 - Type 2 diabetes mellitus without complications Category: Medical Qualifiers: Diabetes mellitus type: type 2 Diabetes mellitus longterm insulin use: without local company intermodal truck driver use Diabetes mellitus complication status: with hyperglycemia Qualified Code(s): E11.65 - Type 2 diabetes mellitus with hyperglycemia Plan: His HgbA1c was 6.5% on his labs done last week (in-office HgbA1c was previously at 6.9% when he was last seen in January 2024) - goal is at least <6.5% Reinforced low calorie/low carb diet; exercise as tolerated Continue Tirzepatide 2.5 mg SQ once a week - he was started on this previously for weight loss but this should also help regulate his blood sugar better (3) Vitamin B12 deficiency: Code(s): E53.8 - Deficiency of other specified B group vitamins Category: Medical Plan: Continue Vitamin B12 1000 mcg QD (4) Vitamin D deficiency: Code(s): E55.9 - Vitamin D deficiency, unspecified Category: Medical Plan: Continue Vitamin D3 2000 units QD (5) Elevated PSA: Code(s): R97.20 - Elevated prostate specific antigen [PSA] Category: Medical Plan: Follow-up with urology as scheduled (6) Obstructive sleep apnea: Code(s): G47.33 - Obstructive sleep apnea (adult) (pediatric) Category: Medical Plan: Patient's sleep study came back positive for STEW and he has been recommended to start using CPAP therapy regularly when sleeping at night His current CPAP settings are at Autopap 5-20 cmH20 Follow-up with sleep medicine as scheduled (7) Morbid obesity with BMI of 40.0-44.9, adult: Code(s): E66.01 - Morbid (severe) obesity due to excess calories; Z68.41 - Body mass index [BMI] 40.0-44.9, adult Category: Medical Plan: Reinforced diet/exercise as tolerated/lose weight Continue Wegovy 2.5 mg SQ once a week Plan Follow up in 4 months Orders: Orders Complete Blood Count Auto Diff 4 Months D64.9 - Anemia, unspecified Comprehensive [place]. Panel Fast 4 Months E78.00 - Pure hypercholesterolemia, unspecified Hemoglobin A1c 4 Months E11.9 - Type 2 diabetes mellitus without complications TSH reflex Free T4 4 Months E78.00 - Pure hypercholesterolemia, unspecified UA CC w/rflx Micro + Cult 4 Months R30.0 - Dysuria Vitamin B12 and Folate 4 Months E53.8 - Deficiency of other specified B group vitamins Lipid Panel 4 Months E78.00 - Pure hypercholesterolemia, unspecified Microalbumin, Random (w Creat) 4 Months E11.9 - Type 2 diabetes mellitus without complications Vitamin D 25-OH Total 4 Months E55.9 - Vitamin D deficiency, unspecified Medications: New tirzepatide (weight loss) (Zepbound) for 4 weeks 2.5 mg (0.5 mL) subcut QWEEK 4 weeks 2 mL 0RF Refilled cholecalciferol (vitamin D3) 50 mcg PO DAILY 90 tabs 3RF R79.89 - Other specified abnormal findings of blood chemistry
--- OUTSIDE RECORDS SUMMARY | 2024-11-19 18:16 | XMS_ITS | Clinical Summary ---
Author Organization [facility] Address [address] [place] [address] Care Team Providers Care Financial Planning Adviser Name Role Phone Unavailable Primary Care Provider [...]
--- OUTSIDE RECORDS SUMMARY | 2024-11-19 18:16 | XMS_ITS | Data Portability ---
Author Organization [facility], [id number] Address [address] [place] [address] Assessment No assessment recorded. Plan of Treatment [...] Time 3 OC-DOT PHYSICAL completed DEISY MARMOLEJO [employer] 12/26/2022 14:27:53 Imaging Results None recorded. Procedure [...] SNOMED-CT Code Diagnosis ICD10 Code Diagnosis Note [id number] [address] [address] [place] [address] 11/02/2020 13:02:42 11/02/2020 14:26:00 [id number] [address] [facility] [place] [address] 05/02/2020 10:22:51 05/02/2020 13:05:49 [id number] [address] [facility] [place] [address] 01/28/2020 18:10:26 01/28/2020 18:45:36 [id number] [address] [facility] [place] [address] 01/09/2021 15:47:52 01/09/2021 17:45:26 [id number] Dilcia Haas MD [address] [facility] [place] [address] 12/26/2022 13:26:40 12/26/2022 14:55:53 Manager Medicare license medical examination [id number] Z02.4 Physical examination [phone] Z02.4 Health [...] HEALTH NET PLAN (MEDICAID HMO) DARY Edmonds [id number] Albaro Edmonds 12/26/2022 OC-PAY AT TIME OF SERVICE 2022 Albaro Edmonds OC-PAY AT TIME OF SERVICE OC-PAY AT TIME OF SERVICE Albaro Edmonds
== END 2024-11-19 15:35 | disposition home or self-care (01) ==
LOC: HO.HMCH 15:00
PROVIDERS: PCP Internal Medicine; Visit Provider Internal Medicine
DX: E78.00 Pure hypercholesterolemia, unspecified (principal); E11.65 Type 2 diabetes mellitus with hyperglycemia; E66.01 Morbid (severe) obesity due to excess calories; Z68.41 Body mass index [BMI] 40.0-44.9, adult; E53.8 Deficiency of other specified B group vitamins; E55.9 Vitamin D deficiency, unspecified; R97.20 Elevated prostate specific antigen [PSA]; G47.33 Obstructive sleep apnea (adult) (pediatric)

== ENCOUNTER → 2024-11-19 15:00 | Outpatient (BNVA) | payer OTHER, SELFPAY | PROVIDERS: PCP Internal Medicine; Visit Provider Internal Medicine | DX: E78.00 Pure hypercholesterolemia, unspecified (principal); E11.65 Type 2 diabetes mellitus with hyperglycemia; E53.8 Deficiency of other specified B group vitamins; E55.9 Vitamin D deficiency, unspecified; R97.20 Elevated prostate specific antigen [PSA]; G47.33 Obstructive sleep apnea (adult) (pediatric); E66.01 Morbid (severe) obesity due to excess calories; D64.9 Anemia, unspecified; R30.0 Dysuria; Z68.41 Body mass index [BMI] 40.0-44.9, adult | CPT/HCPCS: 96127; 99212 ==

== ENCOUNTER 2025-03-31 09:55 | Outpatient (REF) | payer OTHER, SELFPAY ==
[2025-03-31 10:31] LABS: MANUAL DIFF FLAG NO
--- OUTSIDE RECORDS SUMMARY | 2025-03-31 10:52 | XMS_ITS | Clinical Summary ---
Author Organization [facility] Address [address] [place] [address] Care Team Providers Care Ticket Manager Name Role Phone Unavailable Primary Care Provider Unavailabl e Allergies No known active allergies Social History Tobacco Use Types Packs/Day Years Used Date Smoking Tobacco: Never Assessed Sex and Gender Information Value Date Recorded Sex Assigned at Not on file Legal Sex Male 10:47 AM EDT Gender Identity Not on file Sexual Orientation Not on file Last Filed Vital Signs Vital Sign Reading Time Taken Comments Blood Pressure 135/79 11/22/2020 12:56 PM EDT Pulse 70 11/22/2020 12:56 PM EDT Temperature 36.6 C (97.8 F) 11/22/2020 12:56 PM EDT Respiratory Rate - - Oxygen Saturation 95% [...] - 19+ 3-dose series) 1997 Colonoscopy 2023 COVID-19 Vaccine ( - 2023-2 5 season) 2024 Influenza Vaccine 03/07/2025 Pneumococcal Vaccine: Pediat lucinda (0-5 Years) and At-Risk Patients (6 to 49 Years) Aged Out No longer eligible b ased on patient's age to complete this topic Insurance [employer] [facility] [place] [employer]
[2025-03-31 11:00] LABS: Hematocrit 46.3 % (42.0-52.0); Hemoglobin 14.7 g/dl (14.0-18.0); Imm Gran Abs Auto 0.02 X10*3/uL (0.00-0.03); Imm Gran Pct Auto 0.2 % (0.0-0.4); Lymphocytes Absolute Auto 3.8 X10*3/uL (1.2-4.9); Mean Corpuscular HGB Conc 31.7 g/dl (31.0-36.0); Mean Corpuscular Hemoglobin 27.9 pg (27.0-33.0); Mean Corpuscular Volume 88.0 fL (80.0-98.0); NRBC Abs Auto 0.000 X10*3/uL (0.0-0.012); NRBC Pct Auto 0.0 /100WBC (0.0-0.2); Platelet Count 291 X10*3/uL (160-400); Red Blood Count 5.26 X10*6/uL (4.60-5.80); White Blood Count 8.6 X10*3/uL (4.8-10.8)
[2025-03-31 11:06] LABS: Hemoglobin A1C 192.3497 umol/L; Total Hemoglobin (HGBA1C) 3789.0086 umol/L
[2025-03-31 11:21] LABS: Alanine Aminotransferase 23 U/L (0-40); Albumin Level 4.2 g/dL (3.5-5.0); Alkaline Phosphatase 89 U/L (39-117); Anion Gap 11 (12-20); Aspartate Amino Transferase 42 U/L (5-37); Blood Urea Nitrogen 14 mg/dL (9-16); Calcium 8.8 mg/dL (8.4-10.2); Carbon Dioxide 31 mmol/L (22-29); Chloride 102 mmol/L (96-108); Cholesterol 174 mg/dL (<200); Estimated Glomerular Filt Rate > 60; HDL Cholesterol 36 mg/dL (>40); Potassium 4.0 mmol/L (3.3-5.1); Sodium 140 mmol/L (135-145); Total Protein 7.2 g/dL (6.5-8.0); Triglycerides 135 mg/dL (<150)
[2025-03-31 11:45] LABS: Appearance Urine Clear; Glucose Urine UA Negative (Negative); PH 7.0 (5.0-9.0); Specific Gravity - Urine >= 1.030 (1.005-1.025)
[2025-03-31 11:50] LABS: Folate 8.4 ng/mL (> or = 4.0); Vitamin B12 159 pg/mL (200-900)
[2025-03-31 11:58] LABS: Microalbum/Creatinine Ratio Ur 5.2 ug/mg cr (<30)
== END 2025-03-31 09:56 | disposition home or self-care (01) ==
LOC: HO.LAB 09:55
PROVIDERS: PCP Internal Medicine; Visit Provider Internal Medicine
DX: E11.9 Type 2 diabetes mellitus without complications (principal); E78.00 Pure hypercholesterolemia, unspecified; D64.9 Anemia, unspecified; E55.9 Vitamin D deficiency, unspecified; E53.8 Deficiency of other specified B group vitamins; R30.0 Dysuria
CPT/HCPCS: 36415; 80053; 80061; 81003; 82043; 82306; 82570; 82607; 82746; 83036; 84443; 85025

== ENCOUNTER 2025-04-03 15:17 | Outpatient (REF) | payer OTHER, SELFPAY ==
[2025-04-06 12:05] LABS: TS Negative Control Passed; TS Panel A 0; TS Panel B 1; TS Positive Control Passed; TSpotTB Negative (Negative)
== END 2025-04-03 15:18 | disposition home or self-care (01) ==
LOC: HO.LAB 15:17
PROVIDERS: PCP Internal Medicine; Visit Provider Internal Medicine
DX: Z11.1 Encounter for screening for respiratory tuberculosis (principal); E78.00 Pure hypercholesterolemia, unspecified; E11.65 Type 2 diabetes mellitus with hyperglycemia; E53.8 Deficiency of other specified B group vitamins; E55.9 Vitamin D deficiency, unspecified; R97.20 Elevated prostate specific antigen [PSA]; G47.33 Obstructive sleep apnea (adult) (pediatric); E66.01 Morbid (severe) obesity due to excess calories; Z68.41 Body mass index [BMI] 40.0-44.9, adult; Z79.899 Other long term (current) drug therapy
CPT/HCPCS: 36415; 86481; 96127; 99212

== ENCOUNTER 2025-04-03 15:17 | Outpatient (AMB) | payer OTHER, SELFPAY ==
--- NOTE | 2025-04-03 15:20 | A.OFFPC_ITS ---
Vital Signs 04/03/25 15:21 Height 5 ft 9 in Weight 303 lb 4 oz BMI 44.8 BP 128/84 Blood Pressure Location Lt brachial Position Sitting Pulse 97 Pulse Source Pulse Oximeter Temp 97.0 F Temp Source Temporal Artery Scan Pulse Oximetry (%) 97 Oxygen Delivery Method Room Air Intake Visit Reasons: hyperlipidemia, vitamin D deficiency, obesity Allergies No Known Allergies Allergy (Verified 04/03/25 15:47) Medication List - Last Reconciled 04/03/25 by Anson Bruce MD cholecalciferol (vitamin D3) 50 mcg PO DAILY Tobacco use date assessed: 04/03/25 Dental Screening Dental Screen Date: 04/03/25 Did you have a dental visit in the last 12 months?: Yes Did you have a dental problem in the last 6 months where you did not have access to dental care?: No Was dental information given to patient?: Patient has dentist HPI hyperlipidemia, vitamin D deficiency, obesity HPI Details Patient comes in today for his follow up visit States that he feels okay He denies any headaches or dizziness Denies any chest pains, no SOB No nausea/vomiting, no abdominal pain No change in bowel habits noted He had his follow up labs done a few days ago - to discuss his results He is also requesting for lab orders for a T spot, which is required by his employer [employer] [employer] Medical History Obstructive sleep apnea Diabetes mellitus Elevated PSA Pure hypercholesterolemia Vitamin D deficiency Vitamin B12 deficiency Morbid obesity with BMI of 40.0-44.9, adult Obesity (BMI 30-39.9) Left thyroid nodule Surgical History History of thyroid nodule History of lobectomy of thyroid History of tonsillectomy Family History Father No problems noted. Mother No problems noted. Social History Housing: House Alcohol intake: former Patient Tobacco Use Status: Former Tobacco user Tobacco use type: Cigarette Years Smoked: 30 e-Cigarette/Vaping Use: Never Used Second Hand Smoke Exposure: Yes Substance Use Type: Marijuana service: No Current occupational status: unemployed Current occupational exposures/hazards: No Cognitive needs: No Hearing needs: No Vision needs: No Questionnaire PHQ-9 Over the last 2 weeks, how often have you been bothered by any of the following problems? 1. Little interest or pleasure in doing things: not at all 2. Feeling down, depressed, or hopeless: not at all 3. Trouble falling or staying asleep, or sleeping too much: not at all 4. Feeling tired or having little energy: not at all 5. Poor appetite or overeating: not at all 6. Feeling bad about yourself - or that you are a failure or have let yourself or your family down: not at all 7. Trouble concentrating on things, such as reading the newspaper or watching television: not at all 8. Moving or speaking so slowly that other people could have noticed. Or the opposite - being so fidgety or restless that you have been moving around a lot more than usual: not at all 9. Thoughts that you would be better off or of hurting yourself in some way: not at all Total score: 0 Depression Screening Interpretation: Negative Depression Screening Done: Yes 52370 - PHQ-9 Billing: Yes Source: Developed by Drs. Joey Arriola, Aisha Eller, Jim Tolentino and colleagues, with an educational liliana from [employer]. Thrive Questionnaire Date Thrive assessed: 11/19/24 I am a: Patient What is your living situation today?: I have a steady place to live Within the past 12 months, did the food you bought not last and you didn't have the money to get more?: Never true Within the past 12 months, did you worry whether your food would run out before you got money to buy more?: Never true Do you have trouble paying for medicines?: No Do you have trouble getting transportation to medical appointments?: No Do you have trouble paying your heating and electricity bill?: No Do you have trouble taking care of your child, family member or friend?: No Do you have trouble with day-to-day activities such as bathing, preparing meals, shopping, managing finances, etc.?: No Are you currently unemployed and looking for a job?: No Are you interested in more education?: No Please select the resources that you would like help with: None Currently or been in a relationship where the following occur: No concerns reported THRIVE Score: 0 AUDIT C Alcohol Use Questionnaire (AUDIT-C) 1. How often do you have a drink containing alcohol?: Monthly or less 2. How many drinks containing alcohol do you have on a typical day when you are drinking?: 1 or 2 3. How often do you have six or more drinks on one occasion?: Never Total Score: 1 Score Reviewed/Action Taken: Yes WESLEY-7 AMB Questionnaire WESLEY-7 Date WESLEY - 7 assessed: 11/19/24 Feeling nervous, anxious, or on edge: 0 = Not at all Not being able to stop or control worryin = Not at all Worrying too much about different things: 0 = Not at all Trouble relaxin = Not at all Being so restless that it is hard to sit still: 0 = Not at all Becoming easily annoyed or irritable: 0 = Not at all Feeling afraid as if something awful might happen: 0 = Not at all Total WESLEY-7 score (0-4 normal; 5-9 mild; 10-14 moderate; 15-21 severe): 0 Source: Developed by Drs. Joey Arriola, Aisha Eller, Jim Tolentino and colleagues, with an educational liliana from [employer]. Review of Systems Const Denies chills, Reports fatigue, Denies fever(s) and Denies headache(s) ENT Denies dysphagia, Denies dizziness, Denies otalgia, Denies headache(s), Denies neck pain, Denies odynophagia and Denies sore throat Card Denies chest pain, Denies palpitations and Denies dyspnea Resp Denies chest congestion, Denies cough and Denies dyspnea GI Denies abdominal pain, Denies constipation, Denies dysphagia, Denies heartburn, Denies diarrhea, Denies nausea, Denies odynophagia and Denies vomiting Denies difficulty urinating, Denies dysuria, Denies nocturia and Denies urinary frequency Musc Denies back pain and Denies neck pain Skin/Breast Denies rash Neuro Denies dizziness and Denies headache(s) Endo Reports fatigue and Denies palpitations Physical exam (Primary Care) Vital Signs: Last Vital Signs Temp 97.0 F 04/03/25 15:21 Pulse 97 04/03/25 15:21 BP 128/84 04/03/25 15:21 Pulse Ox 97 04/03/25 15:21 Oxygen Delivery Method Room Air 04/03/25 15:21 BMI result Body Mass Index 44.8 Tobacco/Smoking Status: Tobacco use Status Tobacco use date assessed 04/03/25 04/03/25 15:24 Patient Tobacco Use Status Former Tobacco user 04/03/25 15:20 Tobacco use type Cigarette 04/03/25 15:20 e-Cigarette/Vaping Use Never Used 04/03/25 15:20 PHQ-9: PHQ-9 Score PHQ-9: Total score 0 04/03/25 15:47 Depression Screening Interpretation: Negative Thrive Assessment: Date of Thrive Assessment Date Thrive assessed 11/19/24 04/03/25 15:20 Currently or been in a relationship where the following occur: No concerns reported Const General: no acute distress and alert HENMT Ears: TM's normal bilaterally and EAC's normal Throat: Yes posterior oropharynx normal and Yes tonsils normal (no TP congestion) Neck Neck: Yes supple and No lymphadenopathy Thyroid: Thyroid normal Resp Auscultation: clear to auscultation bilaterally, no rales and no wheezes Cardio Rate: regular rate Rhythm: regular rhythm Heart sounds: no murmurs GI Palpation (GI): Soft to palpation and nontender Auscultation: normal bowel sounds General: Yes no CVA tenderness Back/Spine/Pelvis Back: no CVA tenderness Thoracic/Lumbar Spine: No lumbar spinal tenderness Skin Rashes: no rashes Extrem General: Yes no clubbing, cyanosis or edema Results Reviewed Results Reviewed: Laboratory Tests 03/31/25 03/31/25 10:22 10:30 WBC 8.6 Hgb 14.7 Hct 46.3 Plt Count 291 Sodium 140 Potassium 4.0 Creatinine 0.87 Estimated GFR > 60 Fasting Glucose 117 H Hemoglobin A1c % 6.8 H Calcium 8.8 AST 42 H ALT 23 Triglycerides 135 Cholesterol 174 LDL Cholesterol, Calc 111 H HDL Cholesterol 36 L Vitamin B12 159 L 25-OH Vitamin D Total 26.6 L Folate 8.4 TSH 1.91 Ur Specific [place] >= 1.030 H Urine Protein Negative Urine Glucose (UA) Negative Urine Blood Negative Urine Nitrite Negative Ur Leukocyte Esterase Negative Coding Level of Care Code Est Pt Level 4 (69818) Diagnoses Pure hypercholesterolemia E78.00 Type 2 diabetes mellitus with hyperglycemia, without long-term current use of insulin E11.65 Diabetes mellitus complication status: with hyperglycemia Diabetes mellitus [facility] insulin use: without [facility] use Diabetes mellitus type: type 2 Vitamin B12 deficiency E53.8 Vitamin D deficiency E55.9 Elevated PSA R97.20 Obstructive sleep apnea G47.33 Morbid obesity with BMI of 40.0-44.9, adult E66.01; Z68.41 Additional Codes PHQ-9 - 77896 - PHQ-9 Billing: Yes ([id number]) Assessment & Plan Assessment & Plan (1) Pure hypercholesterolemia: Code(s): E78.00 - Pure hypercholesterolemia, unspecified Category: Medical Plan: Results of his labs done a few days ago reviewed and discussed with patient - he is advised that his cholesterol levels have improved slightly from previous Reinforced low-cholesterol diet Have advised patient that per current recommendations, diabetics are automatically recommended to be started on statins for risk reduction Patient would like to continue holding off on Rx at this time Will recheck his labs and fasting lipids again in 4 months for follow-up (2) Diabetes mellitus: Code(s): E11.9 - Type 2 diabetes mellitus without complications Category: Medical Qualifiers: Diabetes mellitus complication status: with hyperglycemia Diabetes mellitus [facility] insulin use: without technician terminal and repeater use Diabetes mellitus type: type 2 Qualified Code(s): E11.65 - Type 2 diabetes mellitus with hyperglycemia Plan: His HgbA1c was 6.8% on his labs done a few days ago (HgbA1c was previously at 6.3% a few months ago) - goal is at least <6.5% Reinforced low calorie/low carb diet; exercise as tolerated Patient would like to continue working on his diet for now and avoid taking any Rx for his diabetes He was previously started on Tirzepatide 2.5 mg SQ once a week for weight loss but is currently no longer taking this (3) Vitamin B12 deficiency: Code(s): E53.8 - Deficiency of other specified B group vitamins Category: Medical Plan: He is advised that his Vitamin B12 is very low on his recent labs Will start him back on Vitamin B12 1000 mcg QD (4) Vitamin D deficiency: Code(s): E55.9 - Vitamin D deficiency, unspecified Category: Medical Plan: Continue Vitamin D3 2000 units QD (5) Elevated PSA: Code(s): R97.20 - Elevated prostate specific antigen [PSA] Category: Medical Plan: Follow-up with urology as scheduled (6) Obstructive sleep apnea: Code(s): G47.33 - Obstructive sleep apnea (adult) (pediatric) Category: Medical Plan: Patient's sleep study came back positive for STEW and he has been recommended to start using CPAP therapy regularly when sleeping at night His current CPAP settings are at Autopap 5-20 cmH20 Follow-up with sleep medicine as scheduled (7) Morbid obesity with BMI of 40.0-44.9, adult: Code(s): E66.01 - Morbid (severe) obesity due to excess calories; Z68.41 - Body mass index [BMI] 40.0-44.9, adult Category: Medical Plan: Reinforced diet/exercise as tolerated/lose weight Plan Per request, T spot ordered - patient states that he will go and get this done [facility] Follow up in 4 months Orders: Orders Homocysteine 04/03/25 E53.8 - Deficiency of other specified B group vitamins Methylmalonic Acid 04/03/25 E53.8 - Deficiency of other specified B group vitamins Comprehensive [place]. Panel Fast 4 Months E78.00 - Pure hypercholesterolemia, unspecified TSH reflex Free T4 4 Months E78.00 - Pure hypercholesterolemia, unspecified UA CC w/rflx Micro + Cult 4 Months R30.0 - Dysuria Vitamin D 25-OH Total 4 Months E55.9 - Vitamin D deficiency, unspecified T Spot TB 04/03/25 Z11.1 - Encounter for screening for respiratory tuberculosis Complete Blood Count Auto Diff 4 Months D64.9 - Anemia, unspecified Lipid Panel 4 Months E78.00 - Pure hypercholesterolemia, unspecified Hemoglobin A1c 4 Months E11.9 - Type 2 diabetes mellitus without complications Microalbumin, Random (w Creat) 4 Months E11.9 - Type 2 diabetes mellitus without complications Vitamin B12 and Folate 4 Months E53.8 - Deficiency of other specified B group vitamins Medications: New mecobalamin (vitamin B12) 1,000 mcg PO DAILY 90 tabs 3RF 90 days
[2025-04-03 15:21] VITALS: BP 128/84; PULSE 97; TEMP 36.1; O2SAT 97; BMI 44.8
--- OUTSIDE RECORDS SUMMARY | 2025-04-03 15:51 | XMS_ITS | Clinical Summary ---
Author Organization [facility] Address [address] [place] [address] Care Team Providers Care Fiction And Nonfiction Prose Writer Name Role Phone Unavailable Primary Care Provider [...] complete this topic Insurance [employer] [facility]
== END 2025-04-03 15:59 | disposition home or self-care (01) ==
LOC: HO.HMCH 15:17
PROVIDERS: PCP Internal Medicine; Visit Provider Internal Medicine
DX: E78.00 Pure hypercholesterolemia, unspecified (principal); E11.65 Type 2 diabetes mellitus with hyperglycemia; E66.01 Morbid (severe) obesity due to excess calories; Z68.41 Body mass index [BMI] 40.0-44.9, adult; E53.8 Deficiency of other specified B group vitamins; E55.9 Vitamin D deficiency, unspecified; R97.20 Elevated prostate specific antigen [PSA]; G47.33 Obstructive sleep apnea (adult) (pediatric)

== ENCOUNTER 2025-04-19 21:30 | Emergency (ER) | payer OTHER, SELFPAY ==
[2025-04-19 21:31] VITALS: BP 128/76; PULSE 96; RESP 20; TEMP 36.7; O2SAT 96; BMI 44.6
--- OUTSIDE RECORDS SUMMARY | 2025-04-19 21:47 | XMS_ITS | Clinical Summary ---
Author Organization [facility] Address [address] [place] [address] Care Team Providers Care Home Worker Name Role Phone Unavailable Primary Care Provider [...] 3-dose series) 1997 Colonoscopy 2023 Influenza Vaccine 03/07/2025 COVID-19 Vaccine (1 - 2023-2 5 season) 2025 Pneumococcal Vaccine: Pediat lucinda (0-5 Years) and At-Risk Patients (6 to 49 Years) Aged Out No longer eligible b ased on patient's age to complete this topic Insurance [employer] [facility]
[2025-04-19 22:00] LABS: MANUAL DIFF FLAG NO
[2025-04-19 22:01] LABS: Hematocrit 41.8 % (42.0-52.0); Hemoglobin 14.1 g/dl (14.0-18.0); Imm Gran Abs Auto 0.02 X10*3/uL (0.00-0.03); Imm Gran Pct Auto 0.2 % (0.0-0.4); Lymphocytes Absolute Auto 3.4 X10*3/uL (1.2-4.9); Mean Corpuscular HGB Conc 33.7 g/dl (31.0-36.0); Mean Corpuscular Hemoglobin 28.3 pg (27.0-33.0); Mean Corpuscular Volume 83.8 fL (80.0-98.0); NRBC Abs Auto 0.000 X10*3/uL (0.0-0.012); NRBC Pct Auto 0.0 /100WBC (0.0-0.2); Platelet Count 282 X10*3/uL (160-400); Red Blood Count 4.99 X10*6/uL (4.60-5.80); White Blood Count 9.3 X10*3/uL (4.8-10.8)
[2025-04-19 22:16] LABS: Alanine Aminotransferase 25 U/L (0-40); Albumin Level 4.2 g/dL (3.5-5.0); Alkaline Phosphatase 89 U/L (39-117); Anion Gap 14 (12-20); Aspartate Amino Transferase 41 U/L (5-37); Blood Urea Nitrogen 18 mg/dL (9-16); Calcium 8.7 mg/dL (8.4-10.2); Carbon Dioxide 25 mmol/L (22-29); Chloride 105 mmol/L (96-108); Creatinine Clr Calc Pharmacy 126.8; Estimated Glomerular Filt Rate > 60; Potassium 3.8 mmol/L (3.3-5.1); Sodium 140 mmol/L (135-145); Total Protein 7.2 g/dL (6.5-8.0)
--- NOTE | 2025-04-19 22:16 | ED_ITS ---
HPI - Skin/Abscess/Foreign Bdy General Chief complaint: Skin/Abscess/Foreign Body Stated complaint: poison barb Time Seen by Provider: 04/19/25 21:45 History of Present Illness HPI narrative: Patient is a 45-year-old male presents today with having bilateral leg itchiness. Patient claims that it is very similar to previous bouts of poison barb. There is no fever no chills. No systemic complaints. Patient is from home. No history of diabetes. But has a history of prediabetes. No coughing or congestion or upper respiratory symptoms. Patient has been walking his dog outside and had itchiness to the legs. No specific rash. But it feels red and warm. Very dry. Related Data Previous Rx's ?Medication ?Instructions ?Recorded cholecalciferol (vitamin D3) 50 50 mcg PO DAILY #90 ta bs 11/19/24 mcg (2,000 unit) tablet mecobalamin (vitamin B12) 1,000 1,000 mcg PO DAILY 90 days #90 tabs 04/03/25 mcg chewable tablet cephalexin 500 mg capsule 500 mg PO Q8H 7 days #21 cap s 04/19/25 diphenhydramine HCl 25 mg capsule 25 mg PO Q8H 5 days #15 caps 04/19/25 (Benadryl) prednisone 20 mg tablet 40 mg (2 x 20 mg) PO DAILY # 10 tabs 04/19/25 Allergies Allergy/AdvReac Type Severity Reaction Status Date / Time No Known Allergies Allergy Verified 04/19/25 21:36 Review of Systems 2 Review of Systems: No fever no chills no diaphoresis no systemic complaints Yes all other systems are reviewed and are negative [facility] Past Medical History Attestation statement: The following information was validated with the patient. Medical History Obstructive sleep apnea Diabetes mellitus Elevated PSA Pure hypercholesterolemia Vitamin D deficiency Vitamin B12 deficiency Morbid obesity with BMI of 40.0-44.9, adult Obesity (BMI 30-39.9) Left thyroid nodule Surgical History History of thyroid nodule History of lobectomy of thyroid History of tonsillectomy Family History Family History Father No problems noted. Mother No problems noted. Social History Social History Housing: House Alcohol intake: former Patient Tobacco Use Status: Former Tobacco user Tobacco use type: Cigarette Years Smoked: 30 e-Cigarette/Vaping Use: Never Used Second Hand Smoke Exposure: Yes Substance Use Type: Marijuana Advance Directives: No Advance Directives Information Provided: No Do you have a plan to hurt others: No Plan service: No Current occupational status: unemployed Current occupational exposures/hazards: No Cognitive needs: No Hearing needs: No Vision needs: No Physical Exam 2 Exam: Exam: Appearance: Alert. Oriented X3. No acute distress. Eyes: Pupils equal, round and reactive to light. ENT: Pharynx normal. Neck: Normal inspection. Neck supple. No lymph nodes noted. No crepitus CVS: Normal heart rate and rhythm. Pulses normal. Normal S1 and S2 Respiratory: No respiratory distress. Breath sounds normal. No Wheezing. No rales Abdomen: Soft and nontender. No rigidity. No distention. good BS x4 Skin: Bilateral lower extremity redness to the calf area. Scratch zamudio. Positive fine dry scaly lesions noted in the legs bilaterally. Distal pulses intact sensation intact. Extremities: No lower extremity edema. Neurovascular intact to all extremities. No Lacerations. No Rash Neuro: Oriented X 3. No motor deficit. No sensory deficit. Moving all extermities. No slurred speech Vital Signs: Vital Signs: Last Vital Signs Temp 98.1 F 04/19/25 21:31 Pulse 96 04/19/25 21:31 Resp 20 04/19/25 21:31 BP 128/76 04/19/25 21:31 Pulse Ox 96 04/19/25 21:31 O2 Del Method Room Air 04/19/25 21:31 BMI result Body Mass Index 44.6 Medical Decision Making Medical Decision Making MDM Narrative: Question allergic reaction versus cellulitis will give steroids and give antibiotics. Have patient closely follow-up. A dose of steroid was given in the ED. explain to patient need to monitor his sugar carefully especially if he is prediabetic and now is getting steroids. Has a question infection versus allergic reaction versus poison barb. In stable condition. Will discharge home. Differential Diagnosis Differential Diagnoses: The differential diagnosis associated with the presentation includes Allergic reaction versus poison barb versus cellulitis Admission/Observation Consideration of admission/observation: Escalation of care including admission/observation considered No systemic effect well-appearing will discharge Lab Data MDM Lab Attestation statement: I reviewed the patient's lab results. 04/19/25 21:57 04/19/25 21:57 Labs: Lab Results 04/19/25 Range/Units 21:57 WBC 9.3 (4.8-10.8) X10*3/uL RBC 4.99 (4.60-5.80) X10*6/uL Hgb 14.1 (14.0-18.0) g/dl Hct 41.8 L (42.0-52.0) % MCV 83.8 (80.0-98.0) fL MCH 28.3 (27.0-33.0) pg MCHC 33.7 (31.0-36.0) g/dl RDW 13.7 (11.0-16.0) % Plt Count 282 (160-400) X10*3/uL MPV 9.4 (9.4-12.4) fL Immature Gran % (Auto) 0.2 (0.0-0.4) % Neut % (Auto) 50.4 (45-73) % Lymph % (Auto) 36.0 (20-40) % [place] % (Auto) 7.3 (2-11) % Eos % (Auto) 5.7 H (0-4) % Baso % (Auto) 0.4 (0-2) % Lymph # (Auto) 3.4 (1.2-4.9) X10*3/uL [place] # (Auto) 0.7 (0.1-1.2) X10*3/uL Eos # (Auto) 0.5 H (0.0-0.4) X10*3/uL Baso # (Auto) 0.0 (0.0-0.2) X10*3/uL Abs Immat Gran (auto) 0.02 (0.00-0.03) X10*3/uL Absolute Neuts (auto) 4.7 (2.0-8.3) x10*3/uL Absolute Nucleated RBC 0.000 (0.0-0.012) X10*3/uL Nucleated RBC % (auto) 0.0 (0.0-0.2) /100WBC Sodium 140 (135-145) mmol/L Potassium 3.8 (3.3-5.1) mmol/L Chloride 105 (96-108) mmol/L Carbon Dioxide 25 (22-29) mmol/L Anion Gap 14 (12-20) BUN 18 H (9-16) mg/dL Creatinine 0.99 (0.5-1.4) mg/dL Estim Creat Clear Calc 126.8 Estimated GFR > 60 Random Glucose 170 H (60-115) mg/dL Calcium 8.7 (8.4-10.2) mg/dL Total Bilirubin 0.4 (0.0-1.0) mg/dL AST 41 H (5-37) U/L ALT 25 (0-40) U/L Alkaline Phosphatase 89 (39-117) U/L Total Protein 7.2 (6.5-8.0) g/dL Albumin 4.2 (3.5-5.0) g/dL Chronic Conditions Patient?s care impacted by: Diabetes Social Determinants Patient?s care significantly limited by Social Determinants of Health including: Problems related to primary support group Discharge Plan Discharge Clinical Impression: Allergy to poison barb, Cellulitis Patient Disposition: Home, Self-Care Instructions: Cellulitis (ED), Poison Barb (ED) Additional Instructions: Please monitor your sugar carefully. Your being placed on steroid and have a question skin infection. Both can cause elevation your sugar. Prescriptions: New prednisone 20 mg tablet 40 mg PO DAILY Qty: 10 0RF cephalexin 500 mg capsule 500 mg PO Q8H 7 Days Qty: 21 0RF diphenhydramine HCl [Benadryl] 25 mg capsule 25 mg PO Q8H 5 Days Qty: 15 0RF No Action cholecalciferol (vitamin D3) 50 mcg (2,000 unit) tablet 50 mcg PO DAILY Qty: 90 3RF mecobalamin (vitamin B12) 1,000 mcg tablet,chewable 1,000 mcg PO DAILY 90 Days Qty: 90 3RF Referrals: Anson Bruce MD [Primary Care Provider, Internal Medicine] - 04/23/25 Print Language: Nepali
[2025-04-19 23:19] VITALS: BP 128/76; PULSE 96; RESP 20; TEMP 36.7; O2SAT 96
== END 2025-04-19 23:20 | disposition home or self-care (01) ==
PROVIDERS: Emergency Provider Emergency Medicine Emergency Medical Services; PCP Internal Medicine
DX: L23.7 Allergic contact dermatitis due to plants, except food (principal); L03.116 Cellulitis of left lower limb; L03.115 Cellulitis of right lower limb; L29.9 Pruritus, unspecified
CPT/HCPCS: 36415; 80053; 85025; 96374; 96375; 99282; 99284; J0690; J1200; J2919

== ENCOUNTER 2025-06-04 08:09 | Outpatient (AMB) | payer OTHER, SELFPAY ==
--- OUTSIDE RECORDS SUMMARY | 2025-06-04 08:22 | XMS_ITS | Clinical Summary ---
Author Organization [facility] Address [address] [place] [address] Care Team Providers Care Plate Maker Zinc Name Role Phone Unavailable Primary Care Provider [...] to complete this topic Insurance [employer] [facility]
--- NOTE | 2025-06-04 08:52 | MHC.OFFVISWM ---
VS Expanded 06/04/25 09:00 Height 5 ft 9 in Weight 300 lb BMI 44.3 Body Fat % 39.9 Body Fat Mass 119.8 Fat Free Mass 180.2 Visceral Fat Rating 13 Body Water % 42.9 Body Water Mass 128.6 Basal Metabolic Rate/Score 2,530 Intake Visit Reasons: [employer] SW[employer]/MWL BMI 44.6 Allergies No Known Allergies Allergy (Verified 06/04/25 08:52) Medication List - Last Reconciled 06/04/25 by Nimesh Abreu MD cholecalciferol (vitamin D3) 50 mcg PO DAILY diphenhydramine HCl (Benadryl) 25 mg PO Q8H 5 days mecobalamin (vitamin B12) 1,000 mcg PO DAILY 90 days HPI HPI [employer] SWL/MWL BMI 44.6: Details: Start time: 8.40am, End time: 9.25am ?I spent 40 minutes speaking with the patient on the phone plus an additional 5 minutes reviewing and updating records for a total of 45 minutes HPI Comments Details: Previous weight loss efforts: self diet and exercise Wakes up: 5am, Sleeps: 11pm Breakfast: skips Lunch: 1pm (rice, chicken, sandwich) Dinner: 7pm (rice, beans, chicken( Snacks: 3-4pm (chips, Rx protein bar), 8pm (cookies) Exercise: none, Gym membership Beverages: Coffee (1 cup/d with creamer), Tea: none, Soda: 2/wk (diet Pepsi), Juice: Powerade , ETOH: none PFSH Medical History (Updated 06/04/25 @ 10:32 by Nimesh Abreu MD) Non-insulin dependent type 2 diabetes mellitus Obstructive sleep apnea Diabetes mellitus Elevated PSA Pure hypercholesterolemia Vitamin D deficiency Vitamin B12 deficiency Morbid obesity with BMI of 40.0-44.9, adult Obesity (BMI 30-39.9) Left thyroid nodule Surgical History History of thyroid nodule History of lobectomy of thyroid History of tonsillectomy Family History Father No problems noted. Mother No problems noted. Social History Housing: House Alcohol intake: former Patient Tobacco Use Status: Former Tobacco user Tobacco use type: Cigarette Years Smoked: 30 e-Cigarette/Vaping Use: Never Used Second Hand Smoke Exposure: Yes Substance Use Type: Marijuana service: No Current occupational status: unemployed Current occupational exposures/hazards: No Cognitive needs: No Hearing needs: No Vision needs: No Physical Exam Vital Signs: BMI result Body Mass Index 44.3 Telehealth Telehealth Telehealth Platform: Telephone Location of provider rendering services: practice address Location of patient: address on file Patient Identification confirmed using: Name, : Yes Telehealth method: voice only Patient verbally consented to treatment: Yes Patient verbally consented to billing insurance company: Yes Patient informed of any privacy concerns related to visit: Yes Minutes spent on Phone/Video with Pt.: 45 Assessment & Plan Assessment & Plan (1) Morbid obesity with BMI of 40.0-44.9, adult: Code(s): E66.01 - Morbid (severe) obesity due to excess calories; Z68.41 - Body mass index [BMI] 40.0-44.9, adult Category: Medical Plan: 1.? Plan for lap sleeve gastrectomy. If diaphragmatic or ventral hernias are present at time of surgery, these will be repaired laparoscopically as well. I emphasized the importance of close follow-up, adherence to instructions and good communication. The surgery does not replace the need to change your lifestlyle which is the cause of the obesity problem. The surgery provides the motivation to try again to change your lifestyle, it reduces the appetite and make the transition to a better lifestyle easier and doubles the amount of weight you would lose compared to doing the lifestyle change without the surgery. You will need to be on a liquid diet with protein shakes for 2 weeks before surgery to maximize weight loss and boost your nutritional status to recover better from surgery and also for the first two weeks after surgery to let the stomach heal before we introduce other foods. After the first 2 weeks we will introduce protein bars and soft foods like scrambled eggs, cottage cheese and yogurt and after the 6th week will introduce meat, fish and cooked vegetables in small amounts. Over time you should be able to eat everything in small amounts. Side effects like nausea, vomiting, heartburn or abdominal pain are not common in the practice unless you are not following in the practice. This operation requires lifetime commitment to following in our practice and communication with me. You will much less weight and experience side effects if you don?t communicate or not following in the practice. Complications are rare and in our practice is about 1/10 of the national average. However, you can develop bleeding that may require transfusion (hasn?t happened for year in the practice), you may from complications (we did not have any deaths in the practice) and infections. Infections are usually a result of breakdown in communication or not understanding or following directions correctly. They are difficult to treat, they can happen during the first 6 weeks, they may require to be in the hospital for weeks or even months, not being able to eat by mouth and you may have drains and surgeries to try and correct the issue. Other risks and complications include possible conversion to an open procedure, leaks, small bowel obstruction, blood clots, cardiac, or pulmonary complications, as parts counterman complications such as ulcers, insufficient weight loss and vitamin deficiencies. 2. Nutritional counseling. Start with one CELEBRATE REBUILD protein (buy online with the link I sent you) shake (ONE scoops in 8oz low fat unsweetened almond milk each) at 6am-8am, 1 protein bar (Rx protein bar, buy at hospital's gift shop) at 9am-11am, another CELEBRATE REBUILD protein shake (ONE scoop in 8oz low fat unsweetened almond milk each) at 12pm-2pm, another Celebrate protein bar at 3pm-5pm, dinner at 6pm (10 forks of protein and 10 forks of salad/vegetables) AND another Rx protein bar after dinner at 8pm-10pm. So you do 2 protein shakes, 3 protein bars and one meal per day. Meal to include lean meat (beef, fish, pork, turkey, chicken), or faroese yogurt, or egg whites, or beans with a salad with olive oil and fruits (berries, pears, apples, kiwi). Avoid salt, breads, potatoes, rice, pasta, desserts. 3. Each shake would be drunk slowly, like coffee in a period of 2 hours. 4. Cut each bar in 4 pieces and eat each piece in 30min ?to make each bar last 2 hours. 5. I emphasized the importance of measuring accurately the food portion and measure it when serving the food in plate 6. The meal portions include 10 full-size forks of meat and 10 full-size forks of salad. You always eat the meat portion but you can replace up to 5 forks for salad/vegetables with rice, potatoes or pasta, or a fruit ?if you like. The less you do it the better weight loss will be. 7. One full-size fork is what it can be scooped on the fork without falling aside and not what can be bit with the fork. Use regular forks like those you find in a typical restaurant. 8.? Please buy the body composition scale we discussed and send me weight measurements as soon as possible and then once a week. Always include your diet and exercise plan. 9. Start treadmill with an incline of 2.0 and speed of 3.0. Increase incline by 1 every 3 min to a max incline of 8.0, stay 3min at 8.0 and then return to 2.0 and repeat same steps until calorie goal is met. Goal is to burn 2000 calories per week on exercise, which means either 300 calories daily, or 400 calories 5 days per week, or 500 calories 4 days per week, or 650 calories 3 days per week. 10. The best choice would be to purchase a stationary bike at home that can track calories. Let me know if you do so I can give you an exercise plan. 11. Goal is to lose at least 1.5-2lbs per week 12. Goal to lose 10% of your weight before surgery, which is about 30lbs. Ultimate weight goal: 270lbs before surgery 13. Please follow the diet plan exactly without any change. If you don't like something about the plan or you feel hungry you need to communicate with me so I can help you revise the plan. You should not change the plan yourself 14. To be scheduled for EGD to assess the stomach's anatomy. The possibility of biopsies was discussed. Patient needs to avoid use of NSAIDs and aspirin for 1 week prior to EGD. You must be on liquids only the day before your endoscopy. Risks of perforation and bleeding was discussed with the patient. This will be an outpatient procedure with IV sedation. 15. ?I ordered a medication to help you with your diabetes as your hemoglobin is elevated at 6.8, which is called Sajan. My office will try to authorize it. Please let me know when you receive it so I can give you a meal and exercise plan. Common side effects include nausea, vomiting, constipation, diarrhea, abdominal pain. Please let me know if you develop any of these symptoms. Orders: Orders Hemoglobin A1c Today E11.65 - Type 2 diabetes mellitus with hyperglycemia, E66.01 - Morbid (severe) obesity due to excess calories, E78.00 - Pure hypercholesterolemia, unspecified, Z68.41 - Body mass index [BMI] 40.0-44.9, adult H Pylori Breath Test Today E11.65 - Type 2 diabetes mellitus with hyperglycemia, E66.01 - Morbid (severe) obesity due to excess calories, E78.00 - Pure hypercholesterolemia, unspecified, Z68.41 - Body mass index [BMI] 40.0-44.9, adult IRON PROFILE Today E11.65 - Type 2 diabetes mellitus with hyperglycemia, E66.01 - Morbid (severe) obesity due to excess calories, E78.00 - Pure hypercholesterolemia, unspecified, Z68.41 - Body mass index [BMI] 40.0-44.9, adult Vitamin B12 and Folate Today E11.65 - Type 2 diabetes mellitus with hyperglycemia, E66.01 - Morbid (severe) obesity due to excess calories, E78.00 - Pure hypercholesterolemia, unspecified, Z68.41 - Body mass index [BMI] 40.0-44.9, adult Zinc Today E11.65 - Type 2 diabetes mellitus with hyperglycemia, E66.01 - Morbid (severe) obesity due to excess calories, E78.00 - Pure hypercholesterolemia, unspecified, Z68.41 - Body mass index [BMI] 40.0-44.9, adult Vitamin B1 Today E11.65 - Type 2 diabetes mellitus with hyperglycemia, E66.01 - Morbid (severe) obesity due to excess calories, E78.00 - Pure hypercholesterolemia, unspecified, Z68.41 - Body mass index [BMI] 40.0-44.9, adult ECG 12 lead EKG Today E11.65 - Type 2 diabetes mellitus with hyperglycemia, E66.01 - Morbid (severe) obesity due to excess calories, E78.00 - Pure hypercholesterolemia, unspecified, Z68.41 - Body mass index [BMI] 40.0-44.9, adult FL upper GI w air Today E11.65 - Type 2 diabetes mellitus with hyperglycemia, E66.01 - Morbid (severe) obesity due to excess calories, E78.00 - Pure hypercholesterolemia, unspecified, Z68.41 - Body mass index [BMI] 40.0-44.9, adult Insulin Today E11.65 - Type 2 diabetes mellitus with hyperglycemia, E66.01 - Morbid (severe) obesity due to excess calories, E78.00 - Pure hypercholesterolemia, unspecified, Z68.41 - Body mass index [BMI] 40.0-44.9, adult Complete Blood Count Auto Diff Today E11.65 - Type 2 diabetes mellitus with hyperglycemia, E66.01 - Morbid (severe) obesity due to excess calories, E78.00 - Pure hypercholesterolemia, unspecified, Z68.41 - Body mass index [BMI] 40.0-44.9, adult Lipid Panel Today E11.65 - Type 2 diabetes mellitus with hyperglycemia, E66.01 - Morbid (severe) obesity due to excess calories, E78.00 - Pure hypercholesterolemia, unspecified, Z68.41 - Body mass index [BMI] 40.0-44.9, adult Comprehensive Met. Panel Today E11.65 - Type 2 diabetes mellitus with hyperglycemia, E66.01 - Morbid (severe) obesity due to excess calories, E78.00 - Pure hypercholesterolemia, unspecified, Z68.41 - Body mass index [BMI] 40.0-44.9, adult C Reactive Protein Today E11.65 - Type 2 diabetes mellitus with hyperglycemia, E66.01 - Morbid (severe) obesity due to excess calories, E78.00 - Pure hypercholesterolemia, unspecified, Z68.41 - Body mass index [BMI] 40.0-44.9, adult Vitamin A Today E11.65 - Type 2 diabetes mellitus with hyperglycemia, E66.01 - Morbid (severe) obesity due to excess calories, E78.00 - Pure hypercholesterolemia, unspecified, Z68.41 - Body mass index [BMI] 40.0-44.9, adult TSH reflex Free T4 Today E11.65 - Type 2 diabetes mellitus with hyperglycemia, E66.01 - Morbid (severe) obesity due to excess calories, E78.00 - Pure hypercholesterolemia, unspecified, Z68.41 - Body mass index [BMI] 40.0-44.9, adult Ferritin Today E11.65 - Type 2 diabetes mellitus with hyperglycemia, E66.01 - Morbid (severe) obesity due to excess calories, E78.00 - Pure hypercholesterolemia, unspecified, Z68.41 - Body mass index [BMI] 40.0-44.9, adult Vitamin D 25-OH Total Today E11.65 - Type 2 diabetes mellitus with hyperglycemia, E66.01 - Morbid (severe) obesity due to excess calories, E78.00 - Pure hypercholesterolemia, unspecified, Z68.41 - Body mass index [BMI] 40.0-44.9, adult US abdomen comp w elastography Today E11.65 - Type 2 diabetes mellitus with hyperglycemia, E66.01 - Morbid (severe) obesity due to excess calories, E78.00 - Pure hypercholesterolemia, unspecified, Z68.41 - Body mass index [BMI] 40.0-44.9, adult XR chest 2V Today E11.65 - Type 2 diabetes mellitus with hyperglycemia, E66.01 - Morbid (severe) obesity due to excess calories, E78.00 - Pure hypercholesterolemia, unspecified, Z68.41 - Body mass index [BMI] 40.0-44.9, adult Referrals Behavioral Health Referral E11.65 - Type 2 diabetes mellitus with hyperglycemia, E66.01 - Morbid (severe) obesity due to excess calories, E78.00 - Pure hypercholesterolemia, unspecified, Z68.41 - Body mass index [BMI] 40.0-44.9, adult Nutrition/Dietitian Referral E11.65 - Type 2 diabetes mellitus with hyperglycemia, E66.01 - Morbid (severe) obesity due to excess calories, E78.00 - Pure hypercholesterolemia, unspecified, Z68.41 - Body mass index [BMI] 40.0-44.9, adult Medications: New tirzepatide (Mounjaro) for 4 weeks 2.5 mg (0.5 mL) subcut QWEEK 2 mL 0RF E11.9 - Type 2 diabetes mellitus without complications
[2025-06-04 09:00] VITALS: BMI 44.3
== END 2025-06-04 10:36 | disposition home or self-care (01) ==
LOC: HO.HBS 08:09
PROVIDERS: PCP Internal Medicine; Visit Provider Surgery
DX: E66.01 Morbid (severe) obesity due to excess calories (principal); Z68.41 Body mass index [BMI] 40.0-44.9, adult
CPT/HCPCS: 99204

== ENCOUNTER 2025-06-12 14:23 | Outpatient (REF) | payer OTHER, SELFPAY ==
--- NOTE | ~2025-06-12 | XR_ITS ---
EXAMINATION: XR CHEST CLINICAL INFORMATION: E66.01 - Morbid (severe) obesity due to excess calories COMPARISON: None available. TECHNIQUE: 2 views of the chest were obtained. FINDINGS: No significant abnormality is noted involving the heart, lungs, mediastinum, bony thorax or soft tissues. XR/XR chest 2V IMPRESSION: No acute disease Electronically signed by: Dwayne Chand MD 06/12/2025 02:57 PM EST
[2025-06-12 14:41] LABS: MANUAL DIFF FLAG NO
[2025-06-12 15:04] LABS: Hematocrit 45.6 % (42.0-52.0); Hemoglobin 14.9 g/dl (14.0-18.0); Imm Gran Abs Auto 0.03 X10*3/uL (0.00-0.03); Imm Gran Pct Auto 0.3 % (0.0-0.4); Lymphocytes Absolute Auto 3.5 X10*3/uL (1.2-4.9); Mean Corpuscular HGB Conc 32.7 g/dl (31.0-36.0); Mean Corpuscular Hemoglobin 27.6 pg (27.0-33.0); Mean Corpuscular Volume 84.4 fL (80.0-98.0); NRBC Abs Auto 0.000 X10*3/uL (0.0-0.012); NRBC Pct Auto 0.0 /100WBC (0.0-0.2); Platelet Count 282 X10*3/uL (160-400); Red Blood Count 5.40 X10*6/uL (4.60-5.80); White Blood Count 10.2 X10*3/uL (4.8-10.8)
[2025-06-12 15:42] LABS: Alanine Aminotransferase 19 U/L (0-40); Albumin Level 4.4 g/dL (3.5-5.0); Alkaline Phosphatase 80 U/L (39-117); Anion Gap 11 (12-20); Aspartate Amino Transferase 28 U/L (5-37); Blood Urea Nitrogen 16 mg/dL (9-16); Calcium 9.0 mg/dL (8.4-10.2); Carbon Dioxide 28 mmol/L (22-29); Chloride 105 mmol/L (96-108); Cholesterol 146 mg/dL (<200); Estimated Glomerular Filt Rate > 60; HDL Cholesterol 37 mg/dL (>40); Iron 78 mcg/dL (45-160); Percent Iron Saturation 25 % (15-50); Potassium 3.9 mmol/L (3.3-5.1); Sodium 140 mmol/L (135-145); Total Iron Binding Capacity 308 mcg/dL (228-428); Total Protein 7.3 g/dL (6.5-8.0); Triglycerides 81 mg/dL (<150); Unsaturated Iron Binding 230 ug/dL
[2025-06-12 15:53] LABS: Ferritin 40 ng/mL (20-250)
[2025-06-12 16:05] LABS: Folate 10.2 ng/mL (> or = 4.0); Vitamin B12 360 pg/mL (200-900)
--- OUTSIDE RECORDS SUMMARY | 2025-06-12 17:33 | XMS_ITS | Clinical Summary ---
Author Organization [facility] Address [address] [place] [address] Care Team Providers Care Moccasin Sewer Name Role Phone Unavailable Primary Care Provider [...] to complete this topic Insurance [employer] [facility]
== END 2025-06-12 14:24 | disposition home or self-care (01) ==
LOC: HO.LAB 14:23
PROVIDERS: PCP Internal Medicine; Visit Provider Surgery
DX: E66.01 Morbid (severe) obesity due to excess calories (principal); E11.65 Type 2 diabetes mellitus with hyperglycemia; E78.00 Pure hypercholesterolemia, unspecified; Z68.41 Body mass index [BMI] 40.0-44.9, adult
CPT/HCPCS: 36415; 71046; 80053; 80061; 82306; 82607; 82728; 82746; 83036; 83525; 83540; 84425; 84443; 84590; 84630; 85025; 86140

== ENCOUNTER → 2025-06-12 14:40 | Outpatient (BNV) | payer OTHER, SELFPAY | PROVIDERS: PCP Internal Medicine; Visit Provider Radiology Diagnostic Radiology | DX: E66.01 Morbid (severe) obesity due to excess calories (principal) | CPT/HCPCS: 71046 ==

== ENCOUNTER 2025-07-24 13:40 | Outpatient (REF) | payer OTHER, SELFPAY ==
[2025-07-24 14:02] LABS: MANUAL DIFF FLAG NO
[2025-07-24 14:29] LABS: Hematocrit 46.1 % (42.0-52.0); Hemoglobin 14.8 g/dl (14.0-18.0); Imm Gran Abs Auto 0.03 X10*3/uL (0.00-0.03); Imm Gran Pct Auto 0.3 % (0.0-0.4); Lymphocytes Absolute Auto 2.8 X10*3/uL (1.2-4.9); Mean Corpuscular HGB Conc 32.1 g/dl (31.0-36.0); Mean Corpuscular Hemoglobin 27.4 pg (27.0-33.0); Mean Corpuscular Volume 85.4 fL (80.0-98.0); NRBC Abs Auto 0.000 X10*3/uL (0.0-0.012); NRBC Pct Auto 0.0 /100WBC (0.0-0.2); Platelet Count 287 X10*3/uL (160-400); Red Blood Count 5.40 X10*6/uL (4.60-5.80); White Blood Count 9.6 X10*3/uL (4.8-10.8)
[2025-07-24 14:30] LABS: Appearance Urine Cloudy; Glucose Urine UA Negative (Negative); PH 7.5 (5.0-9.0); Specific Gravity - Urine 1.020 (1.005-1.025)
[2025-07-24 15:37] LABS: Alanine Aminotransferase 15 U/L (0-40); Albumin Level 4.2 g/dL (3.5-5.0); Alkaline Phosphatase 80 U/L (39-117); Anion Gap 10 (12-20); Aspartate Amino Transferase 23 U/L (5-37); Blood Urea Nitrogen 13 mg/dL (9-16); Calcium 9.0 mg/dL (8.4-10.2); Carbon Dioxide 30 mmol/L (22-29); Chloride 104 mmol/L (96-108); Cholesterol 155 mg/dL (<200); Estimated Glomerular Filt Rate > 60; HDL Cholesterol 37 mg/dL (>40); Potassium 4.0 mmol/L (3.3-5.1); Sodium 140 mmol/L (135-145); Total Protein 7.1 g/dL (6.5-8.0); Triglycerides 97 mg/dL (<150)
[2025-07-24 15:46] LABS: Microalbum/Creatinine Ratio Ur 3.1 ug/mg cr (<30)
[2025-07-24 15:51] LABS: Folate 8.2 ng/mL (> or = 4.0); Vitamin B12 277 pg/mL (200-900)
--- OUTSIDE RECORDS SUMMARY | 2025-07-24 17:54 | XMS_ITS | Data Portability ---
Author Organization [facility] [employer] [address] Address [address] [place] [address] Assessment No assessment recorded. Plan of Treatment [...] Name and Address Organization Details Recorded Time OC-DOT PHYSICAL completed DEISY MARMOLEJO [employer] 12/26/2022 14:27:53 Imaging Results None recorded. Procedure [...] Diagnosis SNOMED-CT Code Diagnosis ICD10 Code Diagnosis IMO Codes Diagnosis Note [id number] [facility] [address] [place] [phone] 11/02/2020 13:02:42 11/02/2020 14:26:00 [id number] [address] [place] [phone] 05/02/2020 10:22:51 05/02/2020 13:05:49 [id number] [address] [address] [place] [address] 01/28/2020 18:10:26 01/28/2020 18:45:36 [id number] [address] [place] [phone] 01/09/2021 15:47:52 01/09/2021 17:45:26 [id number] Dilcia Haas MD [address] [address] [place] [phone] 12/26/2022 13:26:40 12/26/2022 14:55:53 Relations Mgr license medical examination [id number] Z02.4 Physical examination [id number] Z02.4 Health Concerns Section Related Observation LastModified by Organization Detai ls LastModified Time None Recorded Concern Status LastModified by Organization Details LastModified Time None Recorded Advance Directives Directive None Recorded Payers Insurance Date Sequence Insurance Name Policy Number Policy Oliveira Covered Member ID Oliveira Member ID Guarantor Name 12/26/2022 1 [facility] [employer] - HEALTH NET PLAN (MEDICAID HMO) [employer] Albaro Edmonds [id number] Albaro Edmonds 12/26/2022 OC-PAY AT TIME OF SERVICE 2022 Albaro Edmonds OC-PAY AT TIME OF SERVICE OC-PAY AT TIME OF SERVICE Albaro Edmonds 12/26/2022 PAY AT TOS Albaro Edmonds OC-PAY AT TIME OF SERVICE OC-PAY AT TIME OF SERVICE Albaro Edmonds
--- OUTSIDE RECORDS SUMMARY | 2025-07-24 17:54 | XMS_ITS | Clinical Summary ---
Author Organization [facility] Address [address] [place] [address] Care Team Providers Care Medicare Sales Representative Name Role Phone Unavailable Primary Care Provider [...] Influenza Vaccine 03/07/2025 COVID-19 Vaccine (1 - 2024-2 6 season) 2025 Pneumococcal Vaccine: Pediat lucinda (0-5 Years) and At-Risk Patients (6 to 49 Years) Aged Out No longer eligible b ased on patient's age to complete this topic Insurance [facility] [place] [facility]
== END 2025-07-24 13:41 | disposition home or self-care (01) ==
LOC: HO.LAB 13:40
PROVIDERS: PCP Internal Medicine; Visit Provider Internal Medicine
DX: E11.9 Type 2 diabetes mellitus without complications (principal); E78.00 Pure hypercholesterolemia, unspecified; E53.8 Deficiency of other specified B group vitamins; R30.0 Dysuria; E55.9 Vitamin D deficiency, unspecified; D64.9 Anemia, unspecified
CPT/HCPCS: 36415; 80053; 80061; 81003; 82043; 82306; 82570; 82607; 82746; 83036; 84443; 85025